=== PATIENT | male | born 1965 | race Caucasian/White ===

== ENCOUNTER 2017-11-13 10:08 | Inpatient (IN) | payer MEDICARE, MEDICAID ==
[2017-11-08 14:45] LABS: BASOPHILS % (AUTO) 0.5 % (0-1); EOSINOPHILS # (AUTO) 0.3 X10'3 (0-0.9); EOSINOPHILS % (AUTO) 3.6 % (0-6); LYMPHOCYTES % (AUTO) 26.2 % (21-51); MEAN CORPUSCULAR HEMOGLOBIN 31.1 PG (27.0-31.0); MEAN CORPUSCULAR HGB CONC 34.1 % (33.0-36.5); MEAN CORPUSCULAR VOLUME 91.4 FL (78-98); MONOCYTES # (AUTO) 0.4 X10'3 (0-0.9); MONOCYTES % (AUTO) 4.9 % (2-12); NEUTROPHILS # (AUTO) 4.8 X10'3 (1.8-7.7); NEUTROPHILS % (AUTO) 64.8 % (42-75); PRE OP HEMATOCRIT 41.6 % (42.0-52.0); PRE OP HEMOGLOBIN 14.2 g/dL (14.0-17.9); PRE OP PLATELET COUNT 258 X10'3 (140-440); RED BLOOD COUNT 4.55 X10'6 (4.70-6.10); RED CELL DISTRIBUTION WIDTH 12.9 % (11.5-14.5)
[2017-11-08 14:53] LABS: ALBUMIN 3.5 G/DL (3.4-5.0); ALBUMIN/GLOBULIN RATIO 0.9 (1.1-1.5); ALKALINE PHOSPHATASE 90 IU/L (46-116); BLOOD UREA NITROGEN 10 MG/DL (7-18); BUN/CREATININE RATIO 9.1 (5.4-32.0); CALCIUM 8.7 MG/DL (8.5-10.1); CHLORIDE 104 MMOL/L (99-107); PRE OP ALT 57 U/L (30-65); PRE OP ANION GAP 12 (8-16); PRE OP AST 39 U/L (10-37); PRE OP BILIRUB, TOTAL 0.5 MG/DL (0.0-1.0); PRE OP POTASSIUM 3.9 MMOL/L (3.4-5.1); PRE OP SODIUM 140 MMOL/L (135-145); TOTAL CARBON DIOXIDE 24.5 MMOL/L (24-32); TOTAL PROTEIN 7.2 G/DL (6.4-8.2); eGFR 71 ML/MIN
[2017-11-08 14:54] LABS: PRE OP GLUCOSE 124 MG/DL (70-104)
[2017-11-13] VITALS (17 sets, daily range): BP systolic 132–220; BP diastolic 70–114
[~2017-11-13] VITALS: Ht 180.3 cm; Wt 110.9 kg
[~2017-11-13 10:08] MED LIST: CLON0.2T2 PO; LANTUS SQ; LISI-604 PO; NOVLG; OMEP20TA23 PO; meperidine/PF 25mg/ml syringe IV PRN; morphine 4 MG/ML inj SYRINge IV PRN; ondansetron/PF 4mg/2ml inj IV PRN; proCHLORperazine 10 MG/2 ml inj IV PRN; ringers solution, lacted 1,000 ML IV SCH
[2017-11-13] MEDS ORDERED: ringers solution, lacted 1,000 ML IV SCH (10:24)
[2017-11-13] MEDS ORDERED: famotidine 20mg tablet PO ONE (10:24)
[2017-11-13] MEDS ORDERED: LIDOcaine 1% (10mg/ml) 2ml vial ONE (10:25)
[2017-11-13] MEDS ORDERED: NORMAL SALINE IV ONE ×2 (10:32→10:35)
[2017-11-13] MEDS ORDERED: VANCOMYCIN INJ 1000 MG in NORMAL SALINE 250ml IV.SOLN IV ONE (10:32)
[2017-11-13] MEDS ORDERED: TRANEXAMIC ACID IV ONE ×2 (10:32→10:35)
[2017-11-13] MEDS ORDERED: Cefazolin 2GM/50ML dext iso,osmotic IVPB IV ONE (10:33)
[2017-11-13] MEDS ORDERED: BUPIVAcaine/PF 7.5mg/ml (0.75%) 10ml vial ONE (11:34)
[2017-11-13] MEDS ORDERED: metoprolol tartrate 1mg/ml inj IV ONE (11:50)
[2017-11-13] MEDS ORDERED: ondansetron/PF 4mg/2ml inj ONE (11:50)
[2017-11-13] MEDS ORDERED: dexamethasone sod phosphate 10mg/ml inj ONE (11:50)
[2017-11-13] MEDS ORDERED: sevoflurane 250ml liquid IH ONE (11:50)
[2017-11-13] MEDS ORDERED: fentaNYL/PF 50MCG/1 ML 2ML syringe ONE (12:01)
[2017-11-13] MEDS ORDERED: MIDAZolam 5mg/5ml vial ONE (12:01)
[2017-11-13] MEDS ORDERED: ROPIVAcaine 0.5% (5mg/ml) 30ml vial ONE (12:19)
[2017-11-13] MEDS ORDERED: LIDOcaine 1%/PF 5ML 10 MG/ML VIAL ONE (12:19)
[2017-11-13] MEDS ORDERED: propofol inj 20 ML IV ONE (12:19)
[2017-11-13] MEDS ORDERED: triamcinolone acetonide 40mg/ml inj ONE (13:07)
[2017-11-13] MEDS ORDERED: ondansetron/PF 4mg/2ml inj IV PRN (13:15)
[2017-11-13] MEDS ORDERED: magnesium hydroxide 30ml (MOM) UD suspension PO PRN (13:15)
[2017-11-13] MEDS ORDERED: diphenhydrAMINE 25mg capsule PO PRN ×2 (13:15)
[2017-11-13] MEDS ORDERED: bisacodyl 10mg suppository rectal RC PRN (13:15)
[2017-11-13] MEDS ORDERED: acetaminophen 325mg tablet PO PRN (13:15)
[2017-11-13] MEDS ORDERED: oxyCODONE IR 5mg (immed. release) tablet PO PRN (13:15)
[2017-11-13] MEDS ORDERED: HYDROmorphone 1 mg/ml syringe IV PRN (13:15)
[2017-11-13] MEDS: acetaminophen 325mg tablet PO SCH ×2 (15:11→20:04)
[2017-11-13] MEDS: ketorolac tromethamine 15mg/ml inj. IV SCH ×2 (15:11→20:05)
[2017-11-13] MEDS: oxyCODONE IR 5mg (immed. release) tablet PO PRN (15:12)
[2017-11-13] MEDS: potassium cl 20mEq in 1/2 NS 1,000 ML IV SCH (15:12)
[2017-11-13] MEDS: ceFAZolin 1GM/D5W- ADD-VANTAGE 50 ML IV SCH (15:12)
[2017-11-13] MEDS ORDERED: MESSAGE TO PHARMACY PO ONE (16:50)
[2017-11-13] MEDS ORDERED: glucagon, human recombinant 1mg kit SUBCUT PRN (16:50)
[2017-11-13] MEDS ORDERED: dextrose 50%-water 50ml dispensing syringe IV PRN ×2 (16:50)
[2017-11-13] MEDS ORDERED: dextrose ORAL solution 15 GM/59 ML bottle PO PRN ×2 (16:50)
[2017-11-13] MEDS ORDERED: hydrALAZINE 20mg/ml inj. IV PRN (17:05)
[2017-11-13] MEDS: HYDROmorphone 1 mg/ml syringe IV PRN ×2 (17:14→21:41)
[2017-11-13] MEDS: insulin Lispro (HumaLOG) vial - multi-dose SQ SCH ×2 (17:25→19:12)
[2017-11-13] MEDS ORDERED: lisinopril 5mg tablet PO ONE (17:40)
[2017-11-13] MEDS ORDERED: cloNIDine 0.1 mg tablet PO ONE (17:40)
[2017-11-13] MEDS: lisinopril 5mg tablet PO SCH (20:04)
[2017-11-13] MEDS: cloNIDine 0.1 mg tablet PO SCH (20:04)
[2017-11-13] MEDS ORDERED: sennosides 8.6mg tablet PO SCH (21:00)
[2017-11-13] MEDS ORDERED: insulin glargine (Lantus) pen - multi-dose SQ SCH (21:00)
[2017-11-14] MEDS: insulin Lispro (HumaLOG) vial - multi-dose SQ SCH ×2 (00:15→09:26)
[2017-11-14] MEDS: oxyCODONE IR 5mg (immed. release) tablet PO PRN (00:21)
[2017-11-14] MEDS: potassium cl 20mEq in 1/2 NS 1,000 ML IV SCH (00:24)
[2017-11-14] MEDS: ceFAZolin 1GM/D5W- ADD-VANTAGE 50 ML IV SCH (00:24)
[2017-11-14 02:00] VITALS: BP 151/82
[2017-11-14] MEDS: ketorolac tromethamine 15mg/ml inj. IV SCH ×2 (02:16→09:10)
[2017-11-14] MEDS: acetaminophen 325mg tablet PO SCH ×2 (02:16→09:13)
[2017-11-14] MEDS: HYDROmorphone 1 mg/ml syringe IV PRN ×2 (05:21→10:21)
[2017-11-14 06:00] VITALS: BP 152/85
[2017-11-14 06:21] LABS: BASOPHILS % (AUTO) 0.3 % (0-1); EOSINOPHILS % (AUTO) 0 % (0-6); HEMOGLOBIN 13.7 g/dl (14.0-17.9); LYMPHOCYTES # (AUTO) 0.9 X10'3 (1.1-4.8); LYMPHOCYTES % (AUTO) 11.4 % (21-51); MEAN CORPUSCULAR HEMOGLOBIN 30.6 PG (27.0-31.0); MEAN CORPUSCULAR HGB CONC 34.2 % (33.0-36.5); MEAN CORPUSCULAR VOLUME 89.4 FL (78-98); MEAN PLATELET VOLUME 7.6 FL (7.4-10.4); MONOCYTES # (AUTO) 0.2 X10'3 (0-0.9); MONOCYTES % (AUTO) 2.2 % (2-12); NEUTROPHILS # (AUTO) 6.6 X10'3 (1.8-7.7); NEUTROPHILS % (AUTO) 86.1 % (42-75); PLATELET COUNT 224 X10'3 (140-440); RED BLOOD COUNT 4.47 X10'6 (4.70-6.10); RED CELL DISTRIBUTION WIDTH 13.6 % (11.5-14.5); WHITE BLOOD COUNT 7.7 X10'3 (4.5-11.0)
[2017-11-14 06:38] LABS: ANION GAP 9 (8-16); CHLORIDE 101 MMOL/L (99-107); POTASSIUM 4.4 MMOL/L (3.5-5.1); SODIUM 135 MMOL/L (135-145); TOTAL CARBON DIOXIDE 25.3 MMOL/L (24-32)
[2017-11-14] MEDS ORDERED: pantoprazole 40mg Tablet.DR PO SCH (07:30)
[2017-11-14] MEDS ORDERED: CLONIDINE HCL 0.2 MG PO SCH (08:00)
[2017-11-14] MEDS ORDERED: lisinopril 10 MG tablet PO SCH (08:00)
[2017-11-14] MEDS ORDERED: insulin glargine (Lantus) pen - multi-dose SQ SCH (08:00)
[2017-11-14] MEDS ORDERED: cloNIDine 0.1 mg tablet PO SCH (08:00)
[2017-11-14] MEDS ORDERED: aspirin 325mg tablet PO SCH (08:30)
[2017-11-14] MEDS ORDERED: HYDR-565 PO (08:48)
[2017-11-14] MEDS: lisinopril 5mg tablet PO SCH (09:15)
[2017-11-14] MEDS: cloNIDine 0.1 mg tablet PO SCH (09:15)
[2017-11-14 10:00] VITALS: BP 143/79
[2017-11-14] MEDS ORDERED: celeCOXIB 100mg capsule PO SCH (20:00)
[2017-11-15] MEDS ORDERED: acetaminophen 325mg tablet PO PRN (13:15)
== END 2017-11-14 13:00 | disposition home or self-care (01) | DRG 511 ==
LOC: PAS IN 10:08 → EDSTATUS 13:15 → ORTHO 4S 14:35
PROVIDERS: ADMIT Orthopaedic Surgery; ATTEND Orthopaedic Surgery
PROC: 3E0T3BZ Introduction of Anesthetic Agent into Peripheral Nerves and Plexi, Percutaneous Approach (ICD-10-PCS; 2017-11-13)
PROC: 0RBK4ZZ Excision of Left Shoulder Joint, Percutaneous Endoscopic Approach (ICD-10-PCS; principal; 2017-11-13 11:55)
DX: M75.122 Complete rotator cuff tear or rupture of left shoulder, not specified as traumatic (principal); D62 Acute posthemorrhagic anemia; M75.42 Impingement syndrome of left shoulder; E11.9 Type 2 diabetes mellitus without complications; I25.10 Atherosclerotic heart disease of native coronary artery without angina pectoris; I10 Essential (primary) hypertension; K21.9 Gastro-esophageal reflux disease without esophagitis; M19.012 Primary osteoarthritis, left shoulder; Z79.4 Long term (current) use of insulin; Z79.899 Other long term (current) drug therapy; Z87.891 Personal history of nicotine dependence
CPT/HCPCS: 36415; 80051; 80053; 82948; 83036; 85025; 87070; 93005; 97110; 97116; A6449; A7000; J0360; J0690; J1100; J1170; J1815; J1885; J2001; J2250; J2405; J2704; J2795; J3010; J3301; J3370; J3490; J7030; J7120

== ENCOUNTER 2018-01-29 07:05 | Inpatient (IN) | payer MEDICARE, MEDICAID ==
[2018-01-23 15:45] LABS: BASOPHILS # (AUTO) 0.1 X10'3 (0-0.2); BASOPHILS % (AUTO) 1.3 % (0-1); EOSINOPHILS # (AUTO) 0.2 X10'3 (0-0.9); EOSINOPHILS % (AUTO) 3.1 % (0-6); LYMPHOCYTES # (AUTO) 2.3 X10'3 (1.1-4.8); LYMPHOCYTES % (AUTO) 31.1 % (21-51); MEAN CORPUSCULAR HEMOGLOBIN 32.2 PG (27.0-31.0); MEAN PLATELET VOLUME 7.6 FL (7.4-10.4); MONOCYTES # (AUTO) 0.5 X10'3 (0-0.9); MONOCYTES % (AUTO) 6.2 % (2-12); NEUTROPHILS # (AUTO) 4.2 X10'3 (1.8-7.7); NEUTROPHILS % (AUTO) 58.3 % (42-75); PRE OP HEMOGLOBIN 13.6 g/dL (14.0-17.9); PRE OP PLATELET COUNT 232 X10'3 (140-440); RED BLOOD COUNT 4.24 X10'6 (4.70-6.10); RED CELL DISTRIBUTION WIDTH 13.4 % (11.5-14.5)
[2018-01-23 15:58] LABS: PRE OP PROTIME 10.1 SECONDS (9.0-12.0)
[2018-01-23 15:59] LABS: ALBUMIN 3.4 G/DL (3.4-5.0); ALBUMIN/GLOBULIN RATIO 0.9 (1.1-1.5); ALKALINE PHOSPHATASE 96 IU/L (46-116); BLOOD UREA NITROGEN 11 MG/DL (7-18); BUN/CREATININE RATIO 10.5 (5.4-32.0); CALCIUM 8.3 MG/DL (8.5-10.1); CHLORIDE 105 MMOL/L (99-107); CREATININE 1.05 MG/DL (0.60-1.10); PRE OP ANION GAP 11 (8-16); PRE OP BILIRUB, TOTAL 0.3 MG/DL (0.0-1.0); PRE OP SODIUM 141 MMOL/L (135-145); eGFR 75 ML/MIN
[2018-01-23 16:01] LABS: HEMOGLOBIN A1C 5.7 % (4.5-6.2)
[2018-01-23 16:10] LABS: PRE OP ALT 53 U/L (30-65); PRE OP AST 46 U/L (10-37)
[2018-01-23 16:11] LABS: PRE OP GLUCOSE 124 MG/DL (70-104)
[~2018-01-29] VITALS: Ht 182.9 cm; Wt 114.7 kg
[2018-01-29] VITALS (20 sets, daily range): BP systolic 119–184; BP diastolic 57–110
[~2018-01-29 07:05] MED LIST changes: +GABA-532 PO; +HYDR-3973 PO; +LABE200T5 PO; +LISI-600 PO; -LISI-604 PO; +cefazolin/dext.iso 2gm/100 ML IV ONE; +famotidine 20mg tablet PO ONE; -meperidine/PF 25mg/ml syringe IV PRN; -morphine 4 MG/ML inj SYRINge IV PRN; -ondansetron/PF 4mg/2ml inj IV PRN; -proCHLORperazine 10 MG/2 ml inj IV PRN; +vancomycin inj 1,500 MG in normal saline 300ml IV soln IV ONE
[2018-01-29] MEDS ORDERED: ketorolac trometh. 30mg/ml inj. ONE (08:23)
[2018-01-29] MEDS ORDERED: ROPIVAcaine 0.5% (5mg/ml) 30ml vial ONE (08:23)
[2018-01-29] MEDS ORDERED: vancomycin 1,000mg inj ONE (08:23)
[2018-01-29] MEDS ORDERED: diazepam 5mg tablet PO ONE (08:50)
[2018-01-29] MEDS ORDERED: labetalol 100mg tablet PO ONE (09:05)
[2018-01-29] MEDS ORDERED: sevoflurane 250ml liquid IH ONE (09:41)
[2018-01-29] MEDS ORDERED: albuterol 60 PUFF/8GM Inhaler IH ONE (09:41)
[2018-01-29] MEDS ORDERED: midazolam 2 mg/2 ml injection ONE (09:49)
[2018-01-29] MEDS ORDERED: fentaNYL /PF 50mcg/ml 5ml ampule ONE (09:50)
[2018-01-29] MEDS ORDERED: propofol inj 20 ML IV ONE (10:00)
[2018-01-29] MEDS ORDERED: LIDOcaine 2% (20mg/ml) 5ml vial ONE (10:00)
[2018-01-29] MEDS ORDERED: fentaNYL/PF 50MCG/1 ML 2ML syringe ONE (10:43)
[2018-01-29] MEDS ORDERED: ondansetron/PF 4mg/2ml inj ONE (11:25)
[2018-01-29] MEDS ORDERED: neostigmine methylsulfate 1 MG/ML 10ml vial ONE (11:25)
[2018-01-29] MEDS ORDERED: glycopyrrolate 0.2mg/ml inj ONE (11:25)
[2018-01-29] MEDS ORDERED: metoprolol tartrate 1mg/ml inj IV ONE (11:25)
[2018-01-29] MEDS ORDERED: acetaminophen 325mg tablet PO PRN (11:40)
[2018-01-29] MEDS ORDERED: HYDROmorphone 1 mg/ml syringe IV PRN (11:40)
[2018-01-29] MEDS ORDERED: cloNIDine 0.1 mg tablet PO PRN (11:40)
[2018-01-29] MEDS ORDERED: ondansetron/PF 4mg/2ml inj IV PRN ×2 (11:40→11:55)
[2018-01-29] MEDS ORDERED: magnesium hydroxide 30ml (MOM) UD suspension PO PRN (11:40)
[2018-01-29] MEDS ORDERED: oxyCODONE IR 5mg (immed. release) tablet PO PRN (11:40)
[2018-01-29] MEDS ORDERED: bisacodyl 10mg suppository rectal RC PRN (11:40)
[2018-01-29] MEDS ORDERED: diphenhydrAMINE 25mg capsule PO PRN ×2 (11:40)
[2018-01-29] MEDS ORDERED: ringers solution, lacted 1,000 ML IV SCH (11:51)
[2018-01-29] MEDS ORDERED: proCHLORperazine 10 MG/2 ml inj IV PRN (11:55)
[2018-01-29] MEDS ORDERED: meperidine/PF 25mg/ml syringe IV PRN ×3 (11:55)
[2018-01-29] MEDS ORDERED: morphine 4 MG/ML inj SYRINge IV PRN ×2 (11:55)
[2018-01-29] MEDS: HYDROmorphone 1 mg/ml syringe IV PRN ×4 (12:08→23:05)
[2018-01-29] MEDS: oxyCODONE IR 5mg (immed. release) tablet PO PRN ×3 (12:50→21:51)
[2018-01-29] MEDS ORDERED: gabapentin 300mg capsule PO SCH (13:00)
[2018-01-29] MEDS: ketorolac tromethamine 15mg/ml inj. IV SCH ×2 (14:08→20:57)
[2018-01-29] MEDS: gabapentin 300mg capsule PO SCH ×2 (14:08→20:56)
[2018-01-29] MEDS: acetaminophen 325mg tablet PO SCH ×2 (14:09→20:54)
[2018-01-29] MEDS: potassium cl 20mEq in 1/2 NS 1,000 ML IV SCH ×2 (14:40→16:04)
[2018-01-29] MEDS: ceFAZolin 1GM/D5W- ADD-VANTAGE 50 ML IV SCH (16:04)
[2018-01-29] MEDS ORDERED: vancomycin/NS 1 GM ADD-VANTAGE 250 ML IV SCH (20:00)
[2018-01-29] MEDS: lisinopril 20mg tablet PO SCH (20:55)
[2018-01-29] MEDS: sennosides 8.6mg tablet PO SCH (20:57)
[2018-01-30] VITALS (7 sets, daily range): BP systolic 106–144; BP diastolic 48–66
[2018-01-30] MEDS: ceFAZolin 1GM/D5W- ADD-VANTAGE 50 ML IV SCH (00:10)
[2018-01-30] MEDS: acetaminophen 325mg tablet PO SCH ×4 (02:14→20:12)
[2018-01-30] MEDS: ketorolac tromethamine 15mg/ml inj. IV SCH ×2 (02:15→08:13)
[2018-01-30] MEDS: oxyCODONE IR 5mg (immed. release) tablet PO PRN ×5 (02:15→20:15)
[2018-01-30] MEDS: potassium cl 20mEq in 1/2 NS 1,000 ML IV SCH ×4 (03:38→22:52)
[2018-01-30] MEDS: HYDROmorphone 1 mg/ml syringe IV PRN ×5 (04:00→22:37)
[2018-01-30 05:00] LABS: BASOPHILS % (AUTO) 0.7 % (0-1); EOSINOPHILS # (AUTO) 0.3 X10'3 (0-0.9); EOSINOPHILS % (AUTO) 4.8 % (0-6); HEMATOCRIT 31.8 % (42.0-52.0); HEMOGLOBIN 10.9 g/dl (14.0-17.9); LYMPHOCYTES # (AUTO) 1.7 X10'3 (1.1-4.8); LYMPHOCYTES % (AUTO) 29.8 % (21-51); MEAN CORPUSCULAR HEMOGLOBIN 31.1 PG (27.0-31.0); MEAN CORPUSCULAR HGB CONC 34.2 % (33.0-36.5); MEAN CORPUSCULAR VOLUME 91.1 FL (78-98); MEAN PLATELET VOLUME 7.5 FL (7.4-10.4); MONOCYTES # (AUTO) 0.6 X10'3 (0-0.9); NEUTROPHILS # (AUTO) 3.1 X10'3 (1.8-7.7); NEUTROPHILS % (AUTO) 54.7 % (42-75); PLATELET COUNT 155 X10'3 (140-440); RED BLOOD COUNT 3.49 X10'6 (4.70-6.10); RED CELL DISTRIBUTION WIDTH 13.9 % (11.5-14.5); WHITE BLOOD COUNT 5.7 X10'3 (4.5-11.0)
[2018-01-30 05:20] LABS: ANION GAP 8 (8-16); CHLORIDE 100 MMOL/L (99-107); POTASSIUM 4.1 MMOL/L (3.5-5.1); SODIUM 134 MMOL/L (135-145); TOTAL CARBON DIOXIDE 26.1 MMOL/L (24-32)
[2018-01-30] MEDS: insulin glargine (Lantus) pen - multi-dose SQ SCH (08:00)
[2018-01-30] MEDS: gabapentin 300mg capsule PO SCH ×3 (08:22→20:11)
[2018-01-30] MEDS: pantoprazole 40mg Tablet.DR PO SCH (08:23)
[2018-01-30] MEDS: labetalol 100mg tablet PO SCH (08:26)
[2018-01-30] MEDS: aspirin 325mg tablet PO SCH (08:28)
[2018-01-30] MEDS: lisinopril 20mg tablet PO SCH ×2 (08:28→20:12)
[2018-01-30] MEDS: celeCOXIB 100mg capsule PO SCH (20:11)
[2018-01-30] MEDS: sennosides 8.6mg tablet PO SCH (20:13)
[2018-01-31] MEDS: oxyCODONE IR 5mg (immed. release) tablet PO PRN ×5 (02:02→21:20)
[2018-01-31] MEDS: acetaminophen 325mg tablet PO SCH ×2 (02:02→07:29)
[2018-01-31] MEDS: HYDROmorphone 1 mg/ml syringe IV PRN ×4 (04:12→22:51)
[2018-01-31 06:00] VITALS: BP 143/81
[2018-01-31] MEDS ORDERED: insulin Lispro (HumaLOG) vial - multi-dose SQ SCH (06:50)
[2018-01-31] MEDS: lisinopril 20mg tablet PO SCH ×2 (07:26→20:21)
[2018-01-31] MEDS: celeCOXIB 100mg capsule PO SCH ×2 (07:27→20:16)
[2018-01-31] MEDS: gabapentin 300mg capsule PO SCH ×3 (07:28→20:16)
[2018-01-31] MEDS: labetalol 100mg tablet PO SCH (07:29)
[2018-01-31] MEDS: pantoprazole 40mg Tablet.DR PO SCH (07:29)
[2018-01-31] MEDS: insulin glargine (Lantus) pen - multi-dose SQ SCH (07:34)
[2018-01-31] MEDS: aspirin 325mg tablet PO SCH (09:04)
[2018-01-31 10:00] VITALS: BP 114/61
[2018-01-31] MEDS ORDERED: acetaminophen 325mg tablet PO PRN (11:40)
[2018-01-31 11:51] LABS: BASOPHILS % (AUTO) 0.5 % (0-1); EOSINOPHILS # (AUTO) 0.3 X10'3 (0-0.9); EOSINOPHILS % (AUTO) 5.3 % (0-6); HEMOGLOBIN 10.5 g/dl (14.0-17.9); LYMPHOCYTES # (AUTO) 1.6 X10'3 (1.1-4.8); LYMPHOCYTES % (AUTO) 27.1 % (21-51); MEAN CORPUSCULAR HEMOGLOBIN 30.7 PG (27.0-31.0); MEAN CORPUSCULAR HGB CONC 33.8 % (33.0-36.5); MEAN CORPUSCULAR VOLUME 90.9 FL (78-98); MEAN PLATELET VOLUME 7.1 FL (7.4-10.4); MONOCYTES # (AUTO) 0.8 X10'3 (0-0.9); MONOCYTES % (AUTO) 12.6 % (2-12); NEUTROPHILS # (AUTO) 3.3 X10'3 (1.8-7.7); NEUTROPHILS % (AUTO) 54.5 % (42-75); PLATELET COUNT 162 X10'3 (140-440); RED BLOOD COUNT 3.41 X10'6 (4.70-6.10)
[2018-01-31 17:00] VITALS: BP 156/66
[2018-01-31] MEDS: sennosides 8.6mg tablet PO SCH (20:16)
[2018-01-31 20:22] VITALS: BP 176/81
[2018-01-31 21:55] VITALS: BP 158/62
[2018-02-01] MEDS: oxyCODONE IR 5mg (immed. release) tablet PO PRN ×3 (01:00→09:44)
[2018-02-01] MEDS: HYDROmorphone 1 mg/ml syringe IV PRN ×3 (02:53→11:53)
[2018-02-01 06:00] VITALS: BP 139/48
[2018-02-01 07:35] LABS: BASOPHILS % (AUTO) 0.4 % (0-1); EOSINOPHILS # (AUTO) 0.3 X10'3 (0-0.9); EOSINOPHILS % (AUTO) 6.4 % (0-6); HEMATOCRIT 32.2 % (42.0-52.0); HEMOGLOBIN 10.8 g/dl (14.0-17.9); LYMPHOCYTES # (AUTO) 1.6 X10'3 (1.1-4.8); LYMPHOCYTES % (AUTO) 31.3 % (21-51); MEAN CORPUSCULAR HEMOGLOBIN 30.7 PG (27.0-31.0); MEAN CORPUSCULAR HGB CONC 33.7 % (33.0-36.5); MEAN CORPUSCULAR VOLUME 91.2 FL (78-98); MEAN PLATELET VOLUME 7.4 FL (7.4-10.4); MONOCYTES # (AUTO) 0.5 X10'3 (0-0.9); MONOCYTES % (AUTO) 10.4 % (2-12); NEUTROPHILS # (AUTO) 2.6 X10'3 (1.8-7.7); NEUTROPHILS % (AUTO) 51.5 % (42-75); PLATELET COUNT 178 X10'3 (140-440); RED BLOOD COUNT 3.53 X10'6 (4.70-6.10); RED CELL DISTRIBUTION WIDTH 13.8 % (11.5-14.5)
[2018-02-01] MEDS: pantoprazole 40mg Tablet.DR PO SCH (07:46)
[2018-02-01] MEDS: celeCOXIB 100mg capsule PO SCH (07:46)
[2018-02-01] MEDS: labetalol 100mg tablet PO SCH (07:46)
[2018-02-01] MEDS: gabapentin 300mg capsule PO SCH (07:46)
[2018-02-01] MEDS: aspirin 325mg tablet PO SCH (07:47)
[2018-02-01] MEDS: lisinopril 20mg tablet PO SCH (07:47)
[2018-02-01] MEDS: insulin glargine (Lantus) pen - multi-dose SQ SCH (07:57)
[2018-02-01] MEDS ORDERED: polyethylene glycol 3350 17gm powd pack PO ONE (08:10)
[2018-02-01 10:00] VITALS: BP 119/57
== END 2018-02-01 12:00 | DRG 483 ==
LOC: PAS IN 07:05 → EDSTATUS 10:15 → ORTHO 4S 13:10
PROVIDERS: ADMIT Orthopaedic Surgery; ATTEND Orthopaedic Surgery
PROC: 3E0T3BZ Introduction of Anesthetic Agent into Peripheral Nerves and Plexi, Percutaneous Approach (ICD-10-PCS; 2018-01-29)
PROC: 0RRK00Z Replacement of Left Shoulder Joint with Reverse Ball and Socket Synthetic Substitute, Open Approach (ICD-10-PCS; principal; 2018-01-29 09:41)
DX: M19.012 Primary osteoarthritis, left shoulder (principal); D62 Acute posthemorrhagic anemia; M75.122 Complete rotator cuff tear or rupture of left shoulder, not specified as traumatic; E11.9 Type 2 diabetes mellitus without complications; I10 Essential (primary) hypertension; I25.10 Atherosclerotic heart disease of native coronary artery without angina pectoris; F41.8 Other specified anxiety disorders; K21.9 Gastro-esophageal reflux disease without esophagitis; Z72.89 Other problems related to lifestyle; Z79.899 Other long term (current) drug therapy; Z87.891 Personal history of nicotine dependence
CPT/HCPCS: 36415; 80051; 80053; 82948; 83036; 85025; 85610; 85730; 87070; 87075; 87102; 97116; 97161; 97530; A7000; G0378; J0690; J1170; J1815; J1885; J2001; J2250; J2270; J2405; J2704; J2710; J2795; J3010; J3370; J3490; J7030; J7040; J7120; Q0163

== ENCOUNTER 2018-02-28 23:05 | Emergency (ER) | payer MEDICARE, MEDICAID ==
[~2018-02-28] VITALS: Ht 180.3 cm; Wt 112.0 kg
[~2018-02-28 23:05] MED LIST changes: -cefazolin/dext.iso 2gm/100 ML IV ONE; -famotidine 20mg tablet PO ONE; -ringers solution, lacted 1,000 ML IV SCH; -vancomycin inj 1,500 MG in normal saline 300ml IV soln IV ONE
[2018-02-28 23:09] VITALS: BP 132/57
[2018-02-28] MEDS ORDERED: ondansetron 4mg rapidly disintigrating tab PO ONE (23:50)
[2018-02-28] MEDS ORDERED: HYDROmorphone 1 mg/ml syringe IM ONE (23:50)
== END 2018-03-01 01:37 | disposition home or self-care (01) ==
LOC: ER 23:06
DX: M79.602 Pain in left arm (principal); I25.10 Atherosclerotic heart disease of native coronary artery without angina pectoris; E78.00 Pure hypercholesterolemia, unspecified; K21.9 Gastro-esophageal reflux disease without esophagitis; E11.9 Type 2 diabetes mellitus without complications; F41.9 Anxiety disorder, unspecified; F32.9 Major depressive disorder, single episode, unspecified
CPT/HCPCS: 73030; 73080; 96372; 99283; J1170

== ENCOUNTER 2018-05-17 08:59 | Inpatient (IN) | payer MEDICARE, MEDICAID | END 2018-05-20 15:45 | LOC: PAS IN 08:59 → ORTHO 4S 16:35 | PROC: 0RRK0J7 Replacement of Left Shoulder Joint with Synthetic Substitute, Glenoid Surface, Open Approach (ICD-10-PCS; principal; 2018-05-17 13:10) | PROC: 0RPK0JZ Removal of Synthetic Substitute from Left Shoulder Joint, Open Approach (ICD-10-PCS; 2018-05-17 13:10) | DX: S43.015A Anterior dislocation of left humerus, initial encounter (principal); T84.498A Other mechanical complication of other internal orthopedic devices, implants and grafts, initial encounter; M25.512 Pain in left shoulder; Z96.612 Presence of left artificial shoulder joint ==

== ENCOUNTER 2018-06-06 00:31 | Inpatient (IN) | payer MEDICARE, MEDICAID ==
[2018-06-06] VITALS (20 sets, daily range): BP systolic 97–169; BP diastolic 48–97
[~2018-06-06] VITALS: Ht 182.9 cm; Wt 115.0 kg
[2018-06-06] MEDS ORDERED: acetaminophen 325mg tablet PO ONE (01:00)
[2018-06-06] MEDS ORDERED: piperacillin/tazo 3.375gm/50ml 50 ML IV ONE (01:15)
[2018-06-06] MEDS ORDERED: vancomycin/NS 1 GM ADD-VANTAGE 250 ML IV ONE (01:15)
[2018-06-06] MEDS ORDERED: normal saline 1000ML IV soln IV ONE (01:15)
[2018-06-06] MEDS ORDERED: fentaNYL/PF 50MCG/1 ML 2ML syringe IV ONE ×2 (01:35→02:30)
[2018-06-06] MEDS ORDERED: ondansetron/PF 4mg/2ml inj IV ONE (01:35)
[2018-06-06] MEDS ORDERED: iohexol 300mg/ml 100ml inj. ONE (01:39)
[2018-06-06 02:00] LABS: BASOPHILS # (AUTO) 0.1 X10'3 (0-0.2); BASOPHILS % (AUTO) 0.8 % (0-1); EOSINOPHILS # (AUTO) 0.1 X10'3 (0-0.9); EOSINOPHILS % (AUTO) 1.2 % (0-6); HEMATOCRIT 37.5 % (42.0-52.0); HEMOGLOBIN 12.3 g/dl (14.0-17.9); LYMPHOCYTES # (AUTO) 1.8 X10'3 (1.1-4.8); LYMPHOCYTES % (AUTO) 16.3 % (21-51); MEAN CORPUSCULAR HEMOGLOBIN 28.6 PG (27.0-31.0); MEAN CORPUSCULAR HGB CONC 32.7 g/dL (33.0-36.5); MEAN CORPUSCULAR VOLUME 87.4 FL (78-98); MEAN PLATELET VOLUME 7.3 FL (7.4-10.4); MONOCYTES # (AUTO) 1.2 X10'3 (0-0.9); MONOCYTES % (AUTO) 10.7 % (2-12); NEUTROPHILS # (AUTO) 7.8 X10'3 (1.8-7.7); PLATELET COUNT 314 X10'3 (140-440); RED BLOOD COUNT 4.29 X10'6 (4.70-6.10); RED CELL DISTRIBUTION WIDTH 15.5 % (11.5-14.5)
[2018-06-06 02:07] LABS: PARTIAL THROMBOPLASTIN TIME 28 SECONDS (22-32); PROTHROMBIN TIME 10.1 SECONDS (9.0-12.0)
[2018-06-06 02:11] LABS: ALANINE AMINOTRANSFERASE 42 U/L (12-78); ALBUMIN 3.5 G/DL (3.4-5.0); ALBUMIN/GLOBULIN RATIO 0.9 (1.1-1.5); ALKALINE PHOSPHATASE 88 IU/L (46-116); ANION GAP 10 (8-16); ASPARTATE AMINO TRANSFERASE 30 U/L (10-37); BILIRUBIN,TOTAL 0.3 MG/DL (0.1-1.0); BLOOD UREA NITROGEN 15 MG/DL (7-18); BUN/CREATININE RATIO 13.4 (5.4-32.0); CHLORIDE 103 MMOL/L (99-107); CREATININE 1.12 MG/DL (0.60-1.10); GLUCOSE 133 MG/DL (70-104); MAGNESIUM 1.9 MG/DL (1.5-2.4); POTASSIUM 3.7 MMOL/L (3.5-5.1); SODIUM 139 MMOL/L (135-145); TOTAL CARBON DIOXIDE 25.6 MMOL/L (24-32); TOTAL PROTEIN 7.4 G/DL (6.4-8.2); eGFR 69 ML/MIN
[2018-06-06] MEDS ORDERED: ondansetron/PF 4mg/2ml inj IV PRN ×3 (03:50→18:25)
[2018-06-06] MEDS ORDERED: HYDROmorphone inj. 0.5 MG/0.5 ML DISP.SYRIN IV PRN ×2 (03:50→18:25)
[2018-06-06] MEDS ORDERED: dextrose ORAL solution 15 GM/59 ML bottle PO PRN ×2 (03:55)
[2018-06-06] MEDS ORDERED: insulin Lispro (HumaLOG) vial - multi-dose SQ SCH (03:55)
[2018-06-06] MEDS ORDERED: MESSAGE TO PHARMACY PO ONE (03:55)
[2018-06-06] MEDS ORDERED: glucagon, human recombinant 1mg kit SUBCUT PRN (03:55)
[2018-06-06] MEDS ORDERED: dextrose 50%-water 50ml dispensing syringe IV PRN ×2 (03:55)
[2018-06-06] MEDS ORDERED: enalaprilat dihydrate 2.5mg/2ml vial IV ONE (03:55)
[2018-06-06] MEDS ORDERED: cloNIDine 0.1 MG/24 HOUR patch (7 day patch) TD ONE (03:55)
[2018-06-06] MEDS ORDERED: enalaprilat dihydrate 2.5mg/2ml vial IV PRN (03:55)
[2018-06-06] MEDS ORDERED: INSU100I31 SQ (04:35)
[2018-06-06] MEDS ORDERED: CELE-193 PO (04:35)
[2018-06-06] MEDS ORDERED: INSU100C10 SQ (04:36)
[2018-06-06] MEDS ORDERED: METO50TA7 PO (04:38)
[2018-06-06] MEDS ORDERED: HYDR-3972 PO (04:40)
[2018-06-06] MEDS ORDERED: OXYC5CAP19 PO (04:44)
[2018-06-06] MEDS ORDERED: OXYC-580 PO (04:44)
[2018-06-06] MEDS: HYDROmorphone 1 mg/ml syringe IV PRN ×4 (05:00→14:35)
[2018-06-06] MEDS: normal saline 1000ml 1,000 ML IV SCH ×2 (05:01→10:15)
[2018-06-06] MEDS ORDERED: piperacillin/tazo 3.375gm/50ml 50 ML IV SCH (08:00)
[2018-06-06] MEDS ORDERED: pantoprazole 40 MG vial IV SCH (08:00)
--- NOTE | 2018-06-06 09:30 | NUR ---
Patient in room ORTHO 4011. I have received report from RU Garcia in ED, and had the opportunity to ask questions and assume patient care. Addendum: 06/06/18 at 1107 by Lea Byrd RN pt arrived on the unit at 09:55, tucked in, IV fluids hung
--- NOTE | 2018-06-06 12:08 | NUR ---
PAGER ID: [phone] MESSAGE: Lea on ortho, # [phone] Mr. Acosta in 401, blood glucose is 88, pt requested juice to bring it up, please advise, thank you
--- NOTE | 2018-06-06 12:22 | NUR ---
Patient in room ORTHO 4011. I have received report from ANANT Okeefe and had the opportunity to ask questions and assume patient care.
[2018-06-06] MEDS: dextrose 5%-water 1,000 ML IV SCH ×2 (12:45→22:15)
[2018-06-06] MEDS ORDERED: meperidine/PF 25mg/ml syringe IV PRN ×3 (14:05)
[2018-06-06] MEDS ORDERED: morphine 4 MG/ML inj SYRINge IV PRN ×2 (14:05)
[2018-06-06] MEDS ORDERED: ringers solution, lacted 1,000 ML IV SCH (14:05)
[2018-06-06] MEDS ORDERED: proCHLORperazine 10 MG/2 ml inj IV PRN (14:05)
[2018-06-06] MEDS ORDERED: ketorolac trometh. 30mg/ml inj. ONE (14:28)
[2018-06-06] MEDS ORDERED: ROPIVAcaine 0.5% (5mg/ml) 30ml vial ONE (14:29)
--- NOTE | 2018-06-06 14:45 | NUR ---
Extended PIV inserted to the right upper arm stump brachial vein x 2 attempts using ultrasound. Taina hogan. Addendum: 06/06/18 at 1448 by Trinity Augustine RN Amended: Links added.
--- NOTE | 2018-06-06 14:55 | NUR ---
Pt picked up and taken to OR
--- NOTE | 2018-06-06 14:56 | NUR ---
Problems reprioritized. Patient report given, questions answered & plan of care reviewed with Puneet VENCES.
[2018-06-06] MEDS ORDERED: rocuronium 10mg/ml inj IV ONE (15:32)
[2018-06-06] MEDS ORDERED: sevoflurane 250ml liquid IH ONE (15:32)
[2018-06-06] MEDS ORDERED: LIDOcaine 2% (20mg/ml) 5ml vial ONE (15:34)
[2018-06-06] MEDS ORDERED: propofol inj 20 ML IV ONE (15:34)
[2018-06-06] MEDS ORDERED: midazolam 2 mg/2 ml injection ONE (15:34)
[2018-06-06] MEDS ORDERED: fentaNYL /PF 50mcg/ml 5ml ampule ONE (15:34)
[2018-06-06] MEDS ORDERED: vancomycin 1,000mg inj ONE (17:06)
--- NOTE | 2018-06-06 18:19 | NUR ---
Problems reprioritized. Patient report given, questions answered & plan of care reviewed with Mary VENCES.
--- NOTE | 2018-06-06 18:21 | NUR ---
Received from OR via BED, accompanied by Anesthesiologist DR WHITTAKER and report given by Anesthesiologist. PT VERY DROWSY, LEFT SHOULDER W/DRSG/SHOULDER WRAP, ICE PACK, GLORIA DRAIN, CDI. FINGERS PWD. Addendum: 06/06/18 at 1900 by Angelica Walker RN Amended: Links added. Addendum: 06/06/18 at 1905 by Angelica Walker RN LATE NOTE, ORAL AIRWAY PLACED AND PT HELD IN JAW THRUST FOR APPROX 15 MINUTES UNTIL PT MORE AWAKE AND ABLE TO BREATH W/O ASSISTANCE.
[2018-06-06] MEDS ORDERED: diphenhydrAMINE 25mg capsule PO PRN ×2 (18:25)
[2018-06-06] MEDS ORDERED: bisacodyl 10mg suppository rectal RC PRN (18:25)
[2018-06-06] MEDS ORDERED: cloNIDine 0.1 mg tablet PO PRN (18:25)
[2018-06-06] MEDS ORDERED: oxyCODONE IR 5mg (immed. release) tablet PO PRN (18:25)
[2018-06-06] MEDS ORDERED: magnesium hydroxide 30ml (MOM) UD suspension PO PRN (18:25)
--- NOTE | 2018-06-06 18:48 | NUR ---
Patient in room ORTHO 4011. I have received report from Lea VENCES and had the opportunity to ask questions and assume patient care. Patient in surgery still.
[2018-06-06] MEDS ORDERED: tobramycin sulfate 1.2gm vial TP ONE (18:55)
[2018-06-06] MEDS ORDERED: labetalol 20mg/4ml (5mg/ml) syringe IV ONE ×2 (19:29→19:30)
--- NOTE | 2018-06-06 20:01 | NUR ---
Report called to receiving nurse. Transferred PT IN STABLE CONDITION, BP IMPROVED AFTER IV LABETALOL GIVEN, PT WAS ABLE TO VOID W/ASSISTANCE 400 ML, TRANSFERRED via BED, NO Belongings, UPPER DENTURE SENT W/PT TO ROOM 4011B, RECEIVING RN AT BEDSIDE TO RECEIVE PT, PTS FRIEND AT BEDSIDE WELL, BLL, CALL LIGHT GIVEN TO PT, SIDE RAILS UP. Special Issues communicated to receiving nurse. YES. Addendum: 06/06/18 at 2021 by Angelica Walker RN Amended: Links added.
[2018-06-06] MEDS: potassium cl 20mEq in 1/2 NS 1,000 ML IV SCH (20:19)
[2018-06-06] MEDS: insulin glargine (Lantus) pen - multi-dose SQ SCH (21:00)
[2018-06-06] MEDS: lactobacillus rhamnosus 10,000 MMU CELLS/CAPSULE PO SCH (21:01)
[2018-06-06] MEDS: celeCOXIB 100mg capsule PO SCH (21:01)
[2018-06-06] MEDS: gabapentin 300mg capsule PO SCH (21:02)
[2018-06-06] MEDS: sennosides 8.6mg tablet PO SCH (21:02)
[2018-06-06] MEDS: lisinopril 20mg tablet PO SCH (21:02)
[2018-06-06] MEDS: labetalol 100mg tablet PO SCH (21:03)
[2018-06-06] MEDS: oxyCODONE IR 5mg (immed. release) tablet PO PRN (21:04)
[2018-06-07] MEDS: oxyCODONE IR 5mg (immed. release) tablet PO PRN ×3 (01:10→11:33)
[2018-06-07 02:00] VITALS: BP 133/63
[2018-06-07 06:00] VITALS: BP 146/73
--- NOTE | 2018-06-07 06:15 | NUR ---
Patient in room ORTHO 4011. I have received report from UR Hernandez and had the opportunity to ask questions and assume patient care.
--- NOTE | 2018-06-07 06:35 | NUR ---
Problems reprioritized. Patient report given, questions answered & plan of care reviewed with Lea VENCES.
[2018-06-07 07:21] LABS: BASOPHILS % (AUTO) 0.3 % (0-1); EOSINOPHILS # (AUTO) 0.1 X10'3 (0-0.9); EOSINOPHILS % (AUTO) 1.3 % (0-6); HEMOGLOBIN 10.5 g/dl (14.0-17.9); LYMPHOCYTES # (AUTO) 1.3 X10'3 (1.1-4.8); MEAN CORPUSCULAR HEMOGLOBIN 28.8 PG (27.0-31.0); MEAN CORPUSCULAR HGB CONC 32.9 g/dL (33.0-36.5); MEAN CORPUSCULAR VOLUME 87.6 FL (78-98); MEAN PLATELET VOLUME 7.3 FL (7.4-10.4); MONOCYTES % (AUTO) 10.9 % (2-12); NEUTROPHILS # (AUTO) 6.5 X10'3 (1.8-7.7); NEUTROPHILS % (AUTO) 72.5 % (42-75); PLATELET COUNT 245 X10'3 (140-440); RED BLOOD COUNT 3.66 X10'6 (4.70-6.10); RED CELL DISTRIBUTION WIDTH 15.6 % (11.5-14.5)
[2018-06-07 07:23] LABS: ALANINE AMINOTRANSFERASE 28 U/L (12-78); ALBUMIN 2.7 G/DL (3.4-5.0); ALBUMIN/GLOBULIN RATIO 0.8 (1.1-1.5); ALKALINE PHOSPHATASE 58 IU/L (46-116); ANION GAP 7 (8-16); ASPARTATE AMINO TRANSFERASE 24 U/L (10-37); BILIRUBIN,TOTAL 0.7 MG/DL (0.1-1.0); BLOOD UREA NITROGEN 11 MG/DL (7-18); BUN/CREATININE RATIO 9.4 (5.4-32.0); CALCIUM 8.3 MG/DL (8.5-10.1); CHLORIDE 103 MMOL/L (99-107); CREATININE 1.17 MG/DL (0.60-1.10); GLUCOSE 109 MG/DL (70-104); POTASSIUM 3.9 MMOL/L (3.5-5.1); SODIUM 137 MMOL/L (135-145); TOTAL CARBON DIOXIDE 26.7 MMOL/L (24-32); TOTAL PROTEIN 6.3 G/DL (6.4-8.2); eGFR 66 ML/MIN
[2018-06-07] MEDS: HYDROmorphone 1 mg/ml syringe IV PRN ×3 (08:03→18:00)
[2018-06-07] MEDS: dextrose 5%-water 1,000 ML IV SCH ×2 (08:15→18:15)
[2018-06-07] MEDS: pantoprazole 40mg Tablet.DR PO SCH (08:22)
[2018-06-07] MEDS: potassium cl 20mEq in 1/2 NS 1,000 ML IV SCH ×3 (08:22→19:18)
[2018-06-07] MEDS: cefepime 1GM/NS ADD-VANTAGE 100 ML IV SCH ×2 (08:23)
[2018-06-07] MEDS: metoprolol succinate 25mg (24-HOUR) SR. Tablet PO SCH (08:25)
[2018-06-07] MEDS: labetalol 100mg tablet PO SCH ×3 (08:25→21:03)
[2018-06-07] MEDS: gabapentin 300mg capsule PO SCH ×3 (08:25→21:02)
[2018-06-07] MEDS: celeCOXIB 100mg capsule PO SCH ×2 (08:25→21:01)
[2018-06-07] MEDS: lactobacillus rhamnosus 10,000 MMU CELLS/CAPSULE PO SCH ×2 (08:25→21:02)
[2018-06-07] MEDS: lisinopril 20mg tablet PO SCH ×2 (08:26→21:03)
[2018-06-07] MEDS: enoxaparin 40mg/0.4ml syringe SUBCUT SCH (08:27)
[2018-06-07] MEDS: insulin glargine (Lantus) pen - multi-dose SQ SCH ×2 (08:32→21:00)
--- NOTE | 2018-06-07 09:00 | NUR ---
Pt's blood glucose was 164, pt was upset, not on our protocol, left his room to come find RN in another pt's room, proceeded back to his room and administered pt's own insulin. MD happened to be at nurse's station, advised MD of circumstances. No new orders given. spoke with pt.
[2018-06-07] MEDS ORDERED: VANCOMYCIN LEVEL IV ONE (09:30)
--- NOTE | 2018-06-07 09:55 | NUR ---
PAGER ID: [phone] MESSAGE: Lea on ortho, #[phone] Mr. Acosta in 4011B, blood sugar 164, pt's requesting insulin, hasn't met protocol, please advise, thank you
[2018-06-07 10:00] VITALS: BP 108/48
[2018-06-07] MEDS: acetaminophen 325mg tablet PO PRN ×2 (10:26→21:50)
--- NOTE | 2018-06-07 11:29 | NUR ---
PAGER ID: [phone] MESSAGE: Lea pulliam ortho, # [phone], Mr. Acosta, room 4011B, critical vanco of 23.5, drawn while [employer] was running, just an fyi
[2018-06-07 14:00] VITALS: BP 108/48
--- NOTE | 2018-06-07 15:00 | NUR ---
PAGER ID: [phone] MESSAGE: Lea moreno, # [phone], silvio, Mr. Acosta, room 4011B, blood culture, gram positive cocci in clusters from aerobic bottle, L arm Addendum: 06/07/18 at 1502 by Lea Byrd RN MD arrived at nurse's station as I was paging him, results were as expected
--- NOTE | 2018-06-07 15:37 | NUR ---
Pt continues to be non-compliant with care. Pt continually stops IV pump, takes shoulder wrap, cold pack off, stretching, reaching for items with the left shoulder. Education provided.
[2018-06-07] MEDS: cefepime 2g/NS 100ml ADVANTAGE 100 ML IV SCH (15:58)
--- NOTE | 2018-06-07 17:47 | NUR ---
PAGER ID: [phone] MESSAGE: Lea pulliam ortho, # [phone], silvio, Mr. Acosta in 4011B, [facility] trough was 25.3, thank you
[2018-06-07 17:54] LABS: HIV ANTIBODY 1&2 RAPID NON-REACTIVE (Neg)
[2018-06-07 18:00] VITALS: BP 132/50
[2018-06-07] MEDS ORDERED: CADD PCA waste documentation MC PRN (18:00)
[2018-06-07] MEDS ORDERED: naloxone 0.4 mg/ml inj IV PRN (18:00)
--- NOTE | 2018-06-07 18:20 | NUR ---
Problems reprioritized. Patient report given, questions answered & plan of care reviewed with Mary VENCES.
--- NOTE | 2018-06-07 18:38 | NUR ---
Patient in room ORTHO 4011. I have received report from Lea VENCES and had the opportunity to ask questions and assume patient care.
--- NOTE | 2018-06-07 19:00 | NUR ---
Changed patient's dressing due to soiling. New 4x4's and abd pad.
[2018-06-07] MEDS: HYDROmorphone/NS 1 mg/ml CADD 50 ML IV SCH ×3 (19:14→23:00)
[2018-06-07] MEDS: sennosides 8.6mg tablet PO SCH (21:02)
[2018-06-07] MEDS: rifampin 300mg capsule PO SCH (21:02)
[2018-06-07 22:00] VITALS: BP 139/81
--- NOTE | 2018-06-07 22:27 | NUR ---
Drainage running down patient's arm. New dressing applied. Patient moving arm alot and drainage just coming out. Patient has a temperature of 101.3 and Tylenol given.
[2018-06-08] MEDS: cefepime 2g/NS 100ml ADVANTAGE 100 ML IV SCH ×3 (00:04→19:39)
--- NOTE | 2018-06-08 00:24 | NUR ---
Changed dressing due to drainage. Cream colored pus draining from wound. Odor detected. New 4x4 and ABD pad. New shoulder sling and ice pack applied.
[2018-06-08] MEDS: HYDROmorphone/NS 1 mg/ml CADD 50 ML IV SCH ×11 (01:00→23:00)
[2018-06-08 02:03] LABS: BASOPHILS % (AUTO) 0.5 % (0-1); EOSINOPHILS # (AUTO) 0.2 X10'3 (0-0.9); EOSINOPHILS % (AUTO) 2.5 % (0-6); HEMATOCRIT 27.2 % (42.0-52.0); LYMPHOCYTES # (AUTO) 1.8 X10'3 (1.1-4.8); LYMPHOCYTES % (AUTO) 18.7 % (21-51); MEAN CORPUSCULAR HEMOGLOBIN 29.2 PG (27.0-31.0); MEAN CORPUSCULAR HGB CONC 33.1 g/dL (33.0-36.5); MEAN CORPUSCULAR VOLUME 88.2 FL (78-98); MEAN PLATELET VOLUME 7.7 FL (7.4-10.4); MONOCYTES # (AUTO) 1.2 X10'3 (0-0.9); MONOCYTES % (AUTO) 12.8 % (2-12); NEUTROPHILS # (AUTO) 6.4 X10'3 (1.8-7.7); NEUTROPHILS % (AUTO) 65.5 % (42-75); PLATELET COUNT 229 X10'3 (140-440); RED BLOOD COUNT 3.08 X10'6 (4.70-6.10); RED CELL DISTRIBUTION WIDTH 15.4 % (11.5-14.5); WHITE BLOOD COUNT 9.7 X10'3 (4.5-11.0)
[2018-06-08 02:11] LABS: ALANINE AMINOTRANSFERASE 22 U/L (12-78); ALBUMIN 2.5 G/DL (3.4-5.0); ALBUMIN/GLOBULIN RATIO 0.7 (1.1-1.5); ALKALINE PHOSPHATASE 53 IU/L (46-116); ANION GAP 8 (8-16); ASPARTATE AMINO TRANSFERASE 20 U/L (10-37); BILIRUBIN,TOTAL 0.5 MG/DL (0.1-1.0); BLOOD UREA NITROGEN 20 MG/DL (7-18); BUN/CREATININE RATIO 9.5 (5.4-32.0); CALCIUM 8.3 MG/DL (8.5-10.1); CHLORIDE 102 MMOL/L (99-107); GLUCOSE 105 MG/DL (70-104); POTASSIUM 4.4 MMOL/L (3.5-5.1); SODIUM 134 MMOL/L (135-145); TOTAL CARBON DIOXIDE 24.2 MMOL/L (24-32); VANCOMYCIN,TROUGH 18.2 UG/ML (6.0-14.0); eGFR 34 ML/MIN
--- NOTE | 2018-06-08 04:01 | NUR ---
Changed dressing on shoulder due to drainage and pus. New 4x4 and ABD.
[2018-06-08] MEDS: dextrose 5%-water 1,000 ML IV SCH ×2 (04:15→14:15)
[2018-06-08] MEDS: potassium cl 20mEq in 1/2 NS 1,000 ML IV SCH ×2 (05:00→13:10)
[2018-06-08 06:00] VITALS: BP 100/75
--- NOTE | 2018-06-08 06:12 | NUR ---
Problems reprioritized. Patient report given, questions answered & plan of care reviewed with Lea VENCES.
--- NOTE | 2018-06-08 06:25 | NUR ---
Patient in room ORTHO 4011. I have received report from Mary VENCES and had the opportunity to ask questions and assume patient care.
[2018-06-08] MEDS: labetalol 100mg tablet PO SCH ×3 (08:00→21:25)
[2018-06-08] MEDS: lisinopril 20mg tablet PO SCH (08:00)
[2018-06-08] MEDS: metoprolol succinate 25mg (24-HOUR) SR. Tablet PO SCH (08:00)
--- NOTE | 2018-06-08 09:00 | NUR ---
L shoulder dressing with moderate amount of serosang. drainage noted. Removed dressing with copious amounts of thick, greyish green drainage to mid inc. site. Incision measured 15 in. in length. Applied 1 adaptic dressing as well as 1 black foam for wound vac to incision site to L Shoulder. Applied wound vac according to protocol and orders to 50mmhg cont. Pt tolerated procedure well.
[2018-06-08] MEDS: pantoprazole 40mg Tablet.DR PO SCH (09:03)
[2018-06-08] MEDS: rifampin 300mg capsule PO SCH ×2 (09:03→21:25)
[2018-06-08] MEDS: lactobacillus rhamnosus 10,000 MMU CELLS/CAPSULE PO SCH ×2 (09:03→21:25)
[2018-06-08] MEDS: gabapentin 300mg capsule PO SCH ×3 (09:03→21:25)
[2018-06-08] MEDS: enoxaparin 40mg/0.4ml syringe SUBCUT SCH (09:05)
[2018-06-08] MEDS: insulin glargine (Lantus) pen - multi-dose SQ SCH ×2 (09:08→21:00)
[2018-06-08 10:00] VITALS: BP 123/65
[2018-06-08] MEDS ORDERED: cefepime 2g/NS 100ml ADVANTAGE 100 ML IV SCH (16:00)
[2018-06-08] MEDS ORDERED: lactulose 20gm/30ml cup PO STA (16:24)
[2018-06-08 18:00] VITALS: BP 114/48
--- NOTE | 2018-06-08 18:24 | NUR ---
Problems reprioritized. Patient report given, questions answered & plan of care reviewed with Mary VENCES.
[2018-06-08] MEDS ORDERED: hydrALAZINE 20mg/ml inj. IV PRN (18:30)
[2018-06-08] MEDS: normal saline 1000ml 1,000 ML IV SCH (19:39)
[2018-06-08 20:17] LABS: TOTAL PROTEIN,URINE RANDOM 22.7 MG/DL
[2018-06-08 20:23] LABS: CLARITY,URINE CLEAR (Clear); COLOR,URINE YELLOW (Yellow); GLUCOSE, URINE NEGATIVE (Neg); KETONES,URINE NEGATIVE (Neg); LEUKOCYTE ESTERASE ,URINE NEGATIVE (Neg); NITRITES, URINE NEGATIVE (Neg); OCCULT BLOOD,URINE NEGATIVE (Neg); PROTEIN,URINE NEGATIVE (Neg); UROBILINOGEN,URINE 0.2 E.U/dL (0.2-1.0)
[2018-06-08 20:26] LABS: UA COLLECTION TYPE URINAL
[2018-06-08] MEDS: sennosides 8.6mg tablet PO SCH (21:25)
[2018-06-08] MEDS: amLODIPine 5mg tablet PO SCH (21:25)
[2018-06-08] MEDS: LORazepam 1 MG tablet PO PRN (21:25)
[2018-06-08 22:00] VITALS: BP 142/96
--- NOTE | 2018-06-08 22:30 | NUR ---
Patient's S/O left to go home and the patient came out screaming and yelling to call security because the S/O had left her phone in his room. Patient was very upset. Patient kicking his IV pole and cussing.
[2018-06-08] MEDS ORDERED: oxyCODONE IR 5mg (immed. release) tablet PO PRN (23:20)
[2018-06-09] MEDS: dextrose 5%-water 1,000 ML IV SCH ×3 (00:15→20:15)
[2018-06-09] MEDS: HYDROmorphone/NS 1 mg/ml CADD 50 ML IV SCH ×12 (01:00→23:00)
[2018-06-09] MEDS ORDERED: VANCOMYCIN LEVEL IV SCH (03:00)
--- NOTE | 2018-06-09 03:08 | NUR ---
Patient woke up very confused and disorientated. BS taken and vitals taken. Patient alert and orientated now but very fatigued he says. Will continue to monitor.
--- NOTE | 2018-06-09 03:40 | NUR ---
Found a jar of weed in patients bag. Spoke with charge nurse and nursing building construction supervisor. Was told to hide in patients room out of reach of patient and will call s/o in the AM to come remove the drugs or they will be disposed off.
[2018-06-09 04:30] LABS: BASOPHILS % (AUTO) 0.4 % (0-1); EOSINOPHILS # (AUTO) 0.4 X10'3 (0-0.9); EOSINOPHILS % (AUTO) 6.1 % (0-6); HEMATOCRIT 26.1 % (42.0-52.0); HEMOGLOBIN 8.7 g/dl (14.0-17.9); LYMPHOCYTES # (AUTO) 1.4 X10'3 (1.1-4.8); LYMPHOCYTES % (AUTO) 24.1 % (21-51); MEAN CORPUSCULAR HEMOGLOBIN 29.3 PG (27.0-31.0); MEAN CORPUSCULAR HGB CONC 33.3 g/dL (33.0-36.5); MEAN CORPUSCULAR VOLUME 87.9 FL (78-98); MEAN PLATELET VOLUME 7.7 FL (7.4-10.4); MONOCYTES # (AUTO) 0.8 X10'3 (0-0.9); MONOCYTES % (AUTO) 14.3 % (2-12); NEUTROPHILS # (AUTO) 3.2 X10'3 (1.8-7.7); NEUTROPHILS % (AUTO) 55.1 % (42-75); PLATELET COUNT 221 X10'3 (140-440); RED BLOOD COUNT 2.97 X10'6 (4.70-6.10); RED CELL DISTRIBUTION WIDTH 15.6 % (11.5-14.5); WHITE BLOOD COUNT 5.8 X10'3 (4.5-11.0)
[2018-06-09 05:07] LABS: URINE AMPHETAMINE SCREEN NEGATIVE (Neg); URINE BARBITUATE SCREEN NEGATIVE (Neg); URINE BENZODIAZEPINES SCREEN NEGATIVE (Neg); URINE CANNABINOID SCREEN NEGATIVE (Neg); URINE COCAINE SCREEN NEGATIVE (Neg); URINE METHADONE SCREEN NEGATIVE (Neg); URINE OPIATE SCREEN POSITIVE (Neg); URINE PHENCYCLIDINE SCREEN NEGATIVE (Neg)
[2018-06-09] MEDS: normal saline 1000ml 1,000 ML IV SCH ×3 (05:15→19:53)
[2018-06-09 05:18] LABS: ALANINE AMINOTRANSFERASE 22 U/L (12-78); ALBUMIN 2.5 G/DL (3.4-5.0); ALBUMIN/GLOBULIN RATIO 0.7 (1.1-1.5); ALKALINE PHOSPHATASE 57 IU/L (46-116); ANION GAP 8 (8-16); ASPARTATE AMINO TRANSFERASE 18 U/L (10-37); BILIRUBIN,TOTAL 0.8 MG/DL (0.1-1.0); BLOOD UREA NITROGEN 17 MG/DL (7-18); BUN/CREATININE RATIO 10.4 (5.4-32.0); CALCIUM 9.2 MG/DL (8.5-10.1); CHLORIDE 108 MMOL/L (99-107); CREATININE 1.64 MG/DL (0.60-1.10); ETHANOL < 0.010 GM/DL (0.0-0.010); GLUCOSE 107 MG/DL (70-104); POTASSIUM 4.3 MMOL/L (3.5-5.1); SODIUM 140 MMOL/L (135-145); TOTAL CARBON DIOXIDE 23.8 MMOL/L (24-32); TOTAL PROTEIN 6.2 G/DL (6.4-8.2); VANCOMYCIN,RANDOM 11.2 UG/ML; eGFR 45 ML/MIN
[2018-06-09 06:00] VITALS: BP 141/54
--- NOTE | 2018-06-09 06:11 | NUR ---
RECEIVED REPORT FROM RU TAMAYO
--- NOTE | 2018-06-09 06:11 | NUR ---
RECEIVED REPORT FROM RU SHARMA
--- NOTE | 2018-06-09 06:30 | NUR ---
Problems reprioritized. Patient report given, questions answered & plan of care reviewed with Sarah VENCES.
[2018-06-09] MEDS: insulin glargine (Lantus) pen - multi-dose SQ SCH ×2 (07:20→21:00)
[2018-06-09] MEDS: rifampin 300mg capsule PO SCH ×2 (07:30→19:57)
[2018-06-09] MEDS: pantoprazole 40mg Tablet.DR PO SCH (07:30)
[2018-06-09] MEDS: lactobacillus rhamnosus 10,000 MMU CELLS/CAPSULE PO SCH ×2 (07:30→19:57)
[2018-06-09] MEDS: gabapentin 300mg capsule PO SCH ×3 (07:31→21:04)
[2018-06-09] MEDS: metoprolol succinate 25mg (24-HOUR) SR. Tablet PO SCH (07:31)
[2018-06-09] MEDS: amLODIPine 5mg tablet PO SCH ×2 (07:31→19:56)
[2018-06-09] MEDS: labetalol 100mg tablet PO SCH ×3 (07:31→21:05)
[2018-06-09] MEDS: enoxaparin 40mg/0.4ml syringe SUBCUT SCH (07:33)
[2018-06-09] MEDS: cefepime 2g/NS 100ml ADVANTAGE 100 ML IV SCH ×2 (07:34→19:57)
[2018-06-09 10:00] VITALS: BP 137/65
[2018-06-09] MEDS ORDERED: vancomycin/NS 1 GM ADD-VANTAGE 250 ML IV STA (11:54)
[2018-06-09 12:58] LABS: CREATININE 1.57 MG/DL (0.60-1.10); eGFR 47 ML/MIN
[2018-06-09] MEDS: vancomycin inj 1,250 MG in normal saline 250ml IV soln 250 ML IV SCH (14:29)
[2018-06-09 18:00] VITALS: BP 144/55
--- NOTE | 2018-06-09 18:16 | NUR ---
GAVE REPORT TO RU DAVIDSON
[2018-06-09] MEDS: sennosides 8.6mg tablet PO SCH (21:04)
[2018-06-09] MEDS: LORazepam 1 MG tablet PO PRN (21:11)
[2018-06-09 22:00] VITALS: BP 160/45
[2018-06-10] MEDS: HYDROmorphone/NS 1 mg/ml CADD 50 ML IV SCH ×12 (01:00→23:00)
[2018-06-10] MEDS: vancomycin inj 1,250 MG in normal saline 250ml IV soln 250 ML IV SCH ×2 (02:42→15:51)
[2018-06-10 06:00] VITALS: BP 145/57
[2018-06-10] MEDS ORDERED: vancomycin/NS 1 GM ADD-VANTAGE 250 ML IV PRN (06:00)
[2018-06-10 06:30] LABS: BASOPHILS % (AUTO) 0.7 % (0-1); EOSINOPHILS # (AUTO) 0.4 X10'3 (0-0.9); EOSINOPHILS % (AUTO) 7.2 % (0-6); LYMPHOCYTES # (AUTO) 1.6 X10'3 (1.1-4.8); LYMPHOCYTES % (AUTO) 30.1 % (21-51); MEAN CORPUSCULAR HGB CONC 33.2 g/dL (33.0-36.5); MEAN CORPUSCULAR VOLUME 87.2 FL (78-98); MEAN PLATELET VOLUME 7.7 FL (7.4-10.4); MONOCYTES # (AUTO) 0.6 X10'3 (0-0.9); MONOCYTES % (AUTO) 11.3 % (2-12); NEUTROPHILS # (AUTO) 2.6 X10'3 (1.8-7.7); NEUTROPHILS % (AUTO) 50.7 % (42-75); PLATELET COUNT 236 X10'3 (140-440); RED CELL DISTRIBUTION WIDTH 15.4 % (11.5-14.5); WHITE BLOOD COUNT 5.2 X10'3 (4.5-11.0)
[2018-06-10 06:45] LABS: ALANINE AMINOTRANSFERASE 26 U/L (12-78); ALBUMIN 2.6 G/DL (3.4-5.0); ALBUMIN/GLOBULIN RATIO 0.7 (1.1-1.5); ALKALINE PHOSPHATASE 64 IU/L (46-116); ANION GAP 9 (8-16); ASPARTATE AMINO TRANSFERASE 22 U/L (10-37); BILIRUBIN,TOTAL 0.6 MG/DL (0.1-1.0); BLOOD UREA NITROGEN 15 MG/DL (7-18); BUN/CREATININE RATIO 10.6 (5.4-32.0); CALCIUM 9.5 MG/DL (8.5-10.1); CHLORIDE 105 MMOL/L (99-107); CREATININE 1.42 MG/DL (0.60-1.10); GLUCOSE 98 MG/DL (70-104); SODIUM 141 MMOL/L (135-145); TOTAL CARBON DIOXIDE 26.6 MMOL/L (24-32); TOTAL PROTEIN 6.5 G/DL (6.4-8.2); VANCOMYCIN,RANDOM 28.7 UG/ML; eGFR 53 ML/MIN
[2018-06-10] MEDS: normal saline 1000ml 1,000 ML IV SCH ×2 (08:53→20:15)
[2018-06-10] MEDS: pantoprazole 40mg Tablet.DR PO SCH (09:53)
[2018-06-10] MEDS: amLODIPine 5mg tablet PO SCH ×2 (09:54→20:11)
[2018-06-10] MEDS: labetalol 100mg tablet PO SCH ×3 (09:54→20:11)
[2018-06-10] MEDS: metoprolol succinate 25mg (24-HOUR) SR. Tablet PO SCH (09:54)
[2018-06-10] MEDS: gabapentin 300mg capsule PO SCH ×3 (09:54→20:11)
[2018-06-10] MEDS: lactobacillus rhamnosus 10,000 MMU CELLS/CAPSULE PO SCH ×2 (09:54→20:11)
[2018-06-10] MEDS: enoxaparin 40mg/0.4ml syringe SUBCUT SCH (09:55)
[2018-06-10] MEDS: cefepime 2g/NS 100ml ADVANTAGE 100 ML IV SCH ×2 (09:59→20:12)
[2018-06-10 10:00] VITALS: BP_SYST 140; BP_SYST 157; BP_DIAS 67; BP_DIAS 75
[2018-06-10] MEDS ORDERED: lactulose 20gm/30ml cup PO ONE (10:10)
[2018-06-10] MEDS: rifampin 300mg capsule PO SCH ×2 (10:35→20:11)
[2018-06-10] MEDS: insulin glargine (Lantus) pen - multi-dose SQ SCH ×2 (10:37→21:00)
--- NOTE | 2018-06-10 11:49 | NUR ---
WOUND VAC EDUCATION PROVIDED BY WOUND CARE 1. Patient instructed to call the Wound Center or their Home Health Agency immediately if: * They notice a change in the color or amount of the fluid in the canister. * Their wound looks more red than usual or has a foul smell. * The skin around their wound looks reddened or irritated. * The dressing feels loose or appears to be loose. * They experience any increase or changes in their pain. * The alarm will not turn off. 2. Patient instructed that they should not be disconnected from suction for more than 2 hours at a time. * If they are not able to get the suction back on, they need to remove the dressing and take all of the foam out of the wound. * Then moisten sterile gauze with normal saline and place on/in the wound. * Change the dressing once a day until arrangements have been made to replace the wound vac dressing. 3. Patient instructed to turn the wound vac machine OFF and call 911 or go to the ED immediately if their canister fills rapidly with blood. 4. If any of these occur while in the hospital tell a nurse immediately. Addendum: 06/10/18 at 1149 by Tamie Cordero RN Amended: Links added.
[2018-06-10 18:00] VITALS: BP 144/50
--- NOTE | 2018-06-10 18:23 | NUR ---
Problems reprioritized. Patient report given, questions answered & plan of care reviewed with LIEN VENCES.
--- NOTE | 2018-06-10 18:23 | NUR ---
Received report from Candida VENCES, assumed care of patient.
[2018-06-10] MEDS: sennosides 8.6mg tablet PO SCH (20:11)
--- NOTE | 2018-06-10 21:45 | NUR ---
Lab in to attempt to collect blood cultures as ordered by ID. Patient became very loud and upset that the tractor operator laser leveling attempted to collect blood from a vein not of his choice. In doing so he caused the needle to become dislodged and the tractor operator laser leveling was almost stuck with the needle. Blood cultures were not collected at this time. Patient verbalized understanding that 0130 I the nurse would be back to attempt to collect blood for the cultures and vanco trough as ordered. Pt verbalized that he is tired of being poked and having to deal with all of these antibiotics. Pt does verbalize that he knows the reason for the labs and the need for the antibiotics but he is just over having to be poked as his veins are no longer good. Attempt was made to reassure patient and his feelings at this time. Pt denied having any other needs, call light within reach, will continue to monitor.
[2018-06-10 22:00] VITALS: BP 173/50
[2018-06-11] MEDS: nafcillin inj 2 GM in normal saline 100ml IV soln 100 ML IV SCH ×6 (00:03→20:50)
--- NOTE | 2018-06-11 00:15 | NUR ---
Vanco trough lab for 0130 was cancelled r/t vanco order being discontinued.
[2018-06-11] MEDS: HYDROmorphone/NS 1 mg/ml CADD 50 ML IV SCH ×7 (01:00→13:00)
[2018-06-11] MEDS ORDERED: VANCOMYCIN LEVEL IV NR (01:30)
[2018-06-11 06:00] VITALS: BP 131/65
--- NOTE | 2018-06-11 06:33 | NUR ---
Report given to Candida VENCES.
[2018-06-11 06:34] LABS: BASOPHILS % (AUTO) 0.9 % (0-1); EOSINOPHILS # (AUTO) 0.3 X10'3 (0-0.9); EOSINOPHILS % (AUTO) 6.3 % (0-6); HEMATOCRIT 27.3 % (42.0-52.0); HEMOGLOBIN 9.2 g/dl (14.0-17.9); LYMPHOCYTES # (AUTO) 1.6 X10'3 (1.1-4.8); LYMPHOCYTES % (AUTO) 31.6 % (21-51); MEAN CORPUSCULAR HEMOGLOBIN 29.1 PG (27.0-31.0); MEAN CORPUSCULAR HGB CONC 33.7 g/dL (33.0-36.5); MEAN CORPUSCULAR VOLUME 86.4 FL (78-98); MEAN PLATELET VOLUME 7.2 FL (7.4-10.4); MONOCYTES # (AUTO) 0.7 X10'3 (0-0.9); MONOCYTES % (AUTO) 13.5 % (2-12); NEUTROPHILS # (AUTO) 2.4 X10'3 (1.8-7.7); NEUTROPHILS % (AUTO) 47.7 % (42-75); PLATELET COUNT 264 X10'3 (140-440); RED BLOOD COUNT 3.16 X10'6 (4.70-6.10); RED CELL DISTRIBUTION WIDTH 14.8 % (11.5-14.5)
--- NOTE | 2018-06-11 06:46 | NUR ---
Patient in room ORTHO 4011. I have received report from Tori VENCES and had the opportunity to ask questions and assume patient care.
[2018-06-11 06:51] LABS: ALANINE AMINOTRANSFERASE 30 U/L (12-78); ALBUMIN 2.7 G/DL (3.4-5.0); ALBUMIN/GLOBULIN RATIO 0.7 (1.1-1.5); ALKALINE PHOSPHATASE 66 IU/L (46-116); ANION GAP 9 (8-16); ASPARTATE AMINO TRANSFERASE 25 U/L (10-37); BILIRUBIN,TOTAL 0.7 MG/DL (0.1-1.0); BLOOD UREA NITROGEN 13 MG/DL (7-18); BUN/CREATININE RATIO 9.4 (5.4-32.0); CALCIUM 9.4 MG/DL (8.5-10.1); CHLORIDE 104 MMOL/L (99-107); CREATININE 1.39 MG/DL (0.60-1.10); GLUCOSE 96 MG/DL (70-104); POTASSIUM 3.9 MMOL/L (3.5-5.1); SODIUM 141 MMOL/L (135-145); TOTAL CARBON DIOXIDE 28.5 MMOL/L (24-32); TOTAL PROTEIN 6.8 G/DL (6.4-8.2); eGFR 54 ML/MIN
[2018-06-11] MEDS: enoxaparin 40mg/0.4ml syringe SUBCUT SCH (08:00)
[2018-06-11] MEDS: normal saline 1000ml 1,000 ML IV SCH ×3 (08:37→20:55)
[2018-06-11] MEDS: metoprolol succinate 25mg (24-HOUR) SR. Tablet PO SCH (09:32)
[2018-06-11] MEDS: rifampin 300mg capsule PO SCH ×2 (09:32→19:35)
[2018-06-11] MEDS: labetalol 100mg tablet PO SCH ×3 (09:32→20:51)
[2018-06-11] MEDS: pantoprazole 40mg Tablet.DR PO SCH (09:33)
[2018-06-11] MEDS: gabapentin 300mg capsule PO SCH ×3 (09:33→20:51)
[2018-06-11] MEDS: amLODIPine 5mg tablet PO SCH ×2 (09:33→19:35)
[2018-06-11] MEDS: lactobacillus rhamnosus 10,000 MMU CELLS/CAPSULE PO SCH ×2 (09:33→19:35)
[2018-06-11] MEDS: insulin glargine (Lantus) pen - multi-dose SQ SCH ×2 (09:36→20:58)
[2018-06-11 10:00] VITALS: BP 156/75
--- NOTE | 2018-06-11 11:35 | NUR ---
Initial: Pt admit w/ cellulitis s/p I&D following L TSA prior admit. Hx T2DM A1C <7. RD provided pt w/ written/verbal high protein handout and RD contact information. Pt agrees to double eggs, whole milk, season packet, gravy w/ meats, and ensure high protein TIDWM; requests head refrigeration engineer salad w/ dinners and side salad at Lunch. MD and dietary notified. Pt PO fluctuates 0-100% meals but reports brought his own seasoning and good appetite. LBM 06/08 w/ MoM PRN. Will continue to monitor. Rec: 1. continue carb controlled 2. ensure high protein TIDWM 3. honor pt food preferences, see above 4. MVI for wound per MD 5. wt per rx Addendum: 06/11/18 at [address] Amended: Links added.
[2018-06-11] MEDS: lactose-reduced food (Ensure High Protein) 237ml bottle PO SCH ×2 (13:00→18:00)
[2018-06-11] MEDS ORDERED: oxyCODONE IR 5mg (immed. release) tablet PO ONE (17:50)
[2018-06-11 18:00] VITALS: BP 193/58
[2018-06-11] MEDS ORDERED: HYDROmorphone 1 mg/ml syringe IV ONE (18:05)
--- NOTE | 2018-06-11 18:34 | NUR ---
Problems reprioritized. Patient report given, questions answered & plan of care reviewed with Mary VENCES.
--- NOTE | 2018-06-11 18:41 | NUR ---
Patient in room ORTHO 4011. I have received report from Candida VENCES and had the opportunity to ask questions and assume patient care.
[2018-06-11 19:30] VITALS: BP 140/63
[2018-06-11] MEDS: sennosides 8.6mg tablet PO SCH (20:51)
[2018-06-11 22:00] VITALS: BP 109/73
[2018-06-11] MEDS: oxyCODONE IR 5mg (immed. release) tablet PO PRN (22:31)
[2018-06-12] MEDS: nafcillin inj 2 GM in normal saline 100ml IV soln 100 ML IV SCH ×7 (00:35→23:51)
[2018-06-12] MEDS: oxyCODONE IR 5mg (immed. release) tablet PO PRN ×5 (02:16→21:56)
--- NOTE | 2018-06-12 05:55 | NUR ---
50ml of drainage out in wound vac last 12 hours.
--- NOTE | 2018-06-12 06:30 | NUR ---
Problems reprioritized. Patient report given, questions answered & plan of care reviewed with Candida VENCES.
[2018-06-12] MEDS: pantoprazole 40mg Tablet.DR PO SCH (07:30)
[2018-06-12 07:31] VITALS: BP 158/70
[2018-06-12] MEDS: enoxaparin 40mg/0.4ml syringe SUBCUT SCH (08:00)
[2018-06-12] MEDS: insulin glargine (Lantus) pen - multi-dose SQ SCH ×2 (08:55→21:00)
[2018-06-12] MEDS: amLODIPine 5mg tablet PO SCH ×2 (08:55→20:14)
[2018-06-12] MEDS: rifampin 300mg capsule PO SCH ×2 (08:56→20:14)
[2018-06-12] MEDS: lactobacillus rhamnosus 10,000 MMU CELLS/CAPSULE PO SCH ×2 (08:56→20:14)
[2018-06-12] MEDS: labetalol 100mg tablet PO SCH ×3 (08:56→20:14)
[2018-06-12] MEDS: metoprolol succinate 25mg (24-HOUR) SR. Tablet PO SCH (08:56)
[2018-06-12] MEDS: gabapentin 300mg capsule PO SCH ×3 (08:56→20:14)
[2018-06-12 08:59] LABS: BASOPHILS % (AUTO) 0.8 % (0-1); EOSINOPHILS # (AUTO) 0.3 X10'3 (0-0.9); HEMATOCRIT 30.9 % (42.0-52.0); HEMOGLOBIN 10.6 g/dl (14.0-17.9); LYMPHOCYTES # (AUTO) 1.4 X10'3 (1.1-4.8); LYMPHOCYTES % (AUTO) 25.6 % (21-51); MEAN CORPUSCULAR HEMOGLOBIN 29.4 PG (27.0-31.0); MEAN CORPUSCULAR HGB CONC 34.2 g/dL (33.0-36.5); MEAN CORPUSCULAR VOLUME 86.2 FL (78-98); MEAN PLATELET VOLUME 7.3 FL (7.4-10.4); MONOCYTES # (AUTO) 0.7 X10'3 (0-0.9); MONOCYTES % (AUTO) 12.1 % (2-12); NEUTROPHILS # (AUTO) 3.2 X10'3 (1.8-7.7); NEUTROPHILS % (AUTO) 56.5 % (42-75); PLATELET COUNT 277 X10'3 (140-440); RED BLOOD COUNT 3.59 X10'6 (4.70-6.10); WHITE BLOOD COUNT 5.6 X10'3 (4.5-11.0)
[2018-06-12 09:09] LABS: ALANINE AMINOTRANSFERASE 31 U/L (12-78); ALBUMIN 2.7 G/DL (3.4-5.0); ALBUMIN/GLOBULIN RATIO 0.7 (1.1-1.5); ALKALINE PHOSPHATASE 70 IU/L (46-116); ANION GAP 8 (8-16); ASPARTATE AMINO TRANSFERASE 21 U/L (10-37); BILIRUBIN,TOTAL 0.4 MG/DL (0.1-1.0); BLOOD UREA NITROGEN 13 MG/DL (7-18); BUN/CREATININE RATIO 9.6 (5.4-32.0); CALCIUM 9.3 MG/DL (8.5-10.1); CHLORIDE 105 MMOL/L (99-107); CREATININE 1.36 MG/DL (0.60-1.10); GLUCOSE 105 MG/DL (70-104); POTASSIUM 3.9 MMOL/L (3.5-5.1); SODIUM 141 MMOL/L (135-145); TOTAL CARBON DIOXIDE 28.5 MMOL/L (24-32); TOTAL PROTEIN 6.8 G/DL (6.4-8.2); eGFR 55 ML/MIN
[2018-06-12 10:00] VITALS: BP 162/66
[2018-06-12] MEDS: normal saline 1000ml 1,000 ML IV SCH ×2 (12:26→22:20)
[2018-06-12] MEDS: lactose-reduced food (Ensure High Protein) 237ml bottle PO SCH (18:00)
--- NOTE | 2018-06-12 18:24 | NUR ---
Problems reprioritized. Patient report given, questions answered & plan of care reviewed with Mary VENCES.
--- NOTE | 2018-06-12 18:34 | NUR ---
Patient in room ORTHO 4011. I have received report from Candida VENCES and had the opportunity to ask questions and assume patient care.
[2018-06-12] MEDS ORDERED: oxyCODONE IR 5mg (immed. release) tablet PO ONE (19:35)
[2018-06-12 20:15] VITALS: BP 164/79
[2018-06-12] MEDS: sennosides 8.6mg tablet PO SCH (20:15)
[2018-06-12 22:00] VITALS: BP 140/58
[2018-06-13] MEDS: oxyCODONE IR 5mg (immed. release) tablet PO PRN ×6 (01:55→22:36)
[2018-06-13] MEDS: nafcillin inj 2 GM in normal saline 100ml IV soln 100 ML IV SCH ×5 (04:04→20:33)
[2018-06-13] MEDS: normal saline 1000ml 1,000 ML IV SCH ×2 (05:51→16:58)
[2018-06-13 05:58] LABS: BASOPHILS # (AUTO) 0.1 X10'3 (0-0.2); EOSINOPHILS # (AUTO) 0.3 X10'3 (0-0.9); EOSINOPHILS % (AUTO) 4.9 % (0-6); HEMATOCRIT 28.6 % (42.0-52.0); HEMOGLOBIN 9.6 g/dl (14.0-17.9); LYMPHOCYTES # (AUTO) 1.5 X10'3 (1.1-4.8); MEAN CORPUSCULAR HGB CONC 33.4 g/dL (33.0-36.5); MEAN CORPUSCULAR VOLUME 86.7 FL (78-98); MEAN PLATELET VOLUME 7.1 FL (7.4-10.4); MONOCYTES # (AUTO) 0.7 X10'3 (0-0.9); MONOCYTES % (AUTO) 11.3 % (2-12); NEUTROPHILS # (AUTO) 3.3 X10'3 (1.8-7.7); NEUTROPHILS % (AUTO) 56.8 % (42-75); PLATELET COUNT 248 X10'3 (140-440); RED CELL DISTRIBUTION WIDTH 15.2 % (11.5-14.5); WHITE BLOOD COUNT 5.8 X10'3 (4.5-11.0)
[2018-06-13 06:00] VITALS: BP 154/82
[2018-06-13 06:05] LABS: ALANINE AMINOTRANSFERASE 25 U/L (12-78); ALBUMIN 2.6 G/DL (3.4-5.0); ALBUMIN/GLOBULIN RATIO 0.7 (1.1-1.5); ALKALINE PHOSPHATASE 67 IU/L (46-116); ANION GAP 8 (8-16); ASPARTATE AMINO TRANSFERASE 16 U/L (10-37); BILIRUBIN,TOTAL 0.6 MG/DL (0.1-1.0); BLOOD UREA NITROGEN 13 MG/DL (7-18); BUN/CREATININE RATIO 9.8 (5.4-32.0); CALCIUM 8.8 MG/DL (8.5-10.1); CHLORIDE 107 MMOL/L (99-107); CREATININE 1.32 MG/DL (0.60-1.10); GLUCOSE 103 MG/DL (70-104); POTASSIUM 3.7 MMOL/L (3.5-5.1); SODIUM 143 MMOL/L (135-145); TOTAL CARBON DIOXIDE 28.1 MMOL/L (24-32); TOTAL PROTEIN 6.4 G/DL (6.4-8.2); eGFR 57 ML/MIN
--- NOTE | 2018-06-13 06:11 | NUR ---
Problems reprioritized. Patient report given, questions answered & plan of care reviewed with Lea VENCES.
--- NOTE | 2018-06-13 06:15 | NUR ---
Patient in room ORTHO 4011. I have received report from Mary VENCES and had the opportunity to ask questions and assume patient care.
[2018-06-13] MEDS: lactobacillus rhamnosus 10,000 MMU CELLS/CAPSULE PO SCH ×2 (07:30→20:31)
[2018-06-13] MEDS: gabapentin 300mg capsule PO SCH ×3 (07:30→20:32)
[2018-06-13] MEDS: pantoprazole 40mg Tablet.DR PO SCH (07:30)
[2018-06-13] MEDS: amLODIPine 5mg tablet PO SCH ×2 (07:32→20:31)
[2018-06-13] MEDS: rifampin 300mg capsule PO SCH ×2 (07:32→20:32)
[2018-06-13] MEDS: enoxaparin 40mg/0.4ml syringe SUBCUT SCH (07:33)
[2018-06-13] MEDS: labetalol 100mg tablet PO SCH ×3 (07:33→20:32)
[2018-06-13] MEDS: metoprolol succinate 25mg (24-HOUR) SR. Tablet PO SCH (07:33)
[2018-06-13 08:30] VITALS: BP 150/59
[2018-06-13] MEDS: lactose-reduced food (Ensure High Protein) 237ml bottle PO SCH ×3 (08:45→18:38)
[2018-06-13] MEDS: insulin glargine (Lantus) pen - multi-dose SQ SCH ×2 (08:49→20:42)
[2018-06-13 10:00] VITALS: BP 135/60
[2018-06-13 12:15] VITALS: BP 151/90
--- NOTE | 2018-06-13 16:35 | NUR ---
Student documentation: I have reviewed and agree with all interventions, assessments performed and documented by Ute MACHADO
[2018-06-13 18:00] VITALS: BP 140/80
--- NOTE | 2018-06-13 18:23 | NUR ---
Problems reprioritized. Patient report given, questions answered & plan of care reviewed with Mary VENCES.
--- NOTE | 2018-06-13 18:23 | NUR ---
Patient in room ORTHO 4011. I have received report from Lea VENCES and had the opportunity to ask questions and assume patient care.
[2018-06-13] MEDS: sennosides 8.6mg tablet PO SCH (20:32)
[2018-06-13 22:00] VITALS: BP 141/49
--- NOTE | 2018-06-13 22:42 | NUR ---
Patient complaining that he feels like there is a build up of fluid in his shoulder. Shoulder assessed and wound vac still set for 125hhmg low continuos. Dressing CDI. Drainage seen in tubing and being collected into canister. Patient requested to have a heat pack.
[2018-06-14] MEDS: nafcillin inj 2 GM in normal saline 100ml IV soln 100 ML IV SCH ×3 (00:08→07:46)
[2018-06-14] MEDS: oxyCODONE IR 5mg (immed. release) tablet PO PRN ×3 (02:09→10:02)
[2018-06-14 03:39] LABS: BASOPHILS # (AUTO) 0.1 X10'3 (0-0.2); BASOPHILS % (AUTO) 0.8 % (0-1); EOSINOPHILS # (AUTO) 0.4 X10'3 (0-0.9); EOSINOPHILS % (AUTO) 5.7 % (0-6); HEMATOCRIT 27.9 % (42.0-52.0); HEMOGLOBIN 9.3 g/dl (14.0-17.9); LYMPHOCYTES # (AUTO) 1.5 X10'3 (1.1-4.8); LYMPHOCYTES % (AUTO) 24.8 % (21-51); MEAN CORPUSCULAR HEMOGLOBIN 28.8 PG (27.0-31.0); MEAN CORPUSCULAR HGB CONC 33.2 g/dL (33.0-36.5); MEAN CORPUSCULAR VOLUME 86.7 FL (78-98); MEAN PLATELET VOLUME 7.2 FL (7.4-10.4); MONOCYTES # (AUTO) 0.6 X10'3 (0-0.9); MONOCYTES % (AUTO) 9.8 % (2-12); NEUTROPHILS # (AUTO) 3.6 X10'3 (1.8-7.7); NEUTROPHILS % (AUTO) 58.9 % (42-75); PLATELET COUNT 243 X10'3 (140-440); RED BLOOD COUNT 3.22 X10'6 (4.70-6.10); RED CELL DISTRIBUTION WIDTH 15.2 % (11.5-14.5); WHITE BLOOD COUNT 6.2 X10'3 (4.5-11.0)
[2018-06-14 03:49] LABS: ALANINE AMINOTRANSFERASE 20 U/L (12-78); ALBUMIN 2.5 G/DL (3.4-5.0); ALBUMIN/GLOBULIN RATIO 0.7 (1.1-1.5); ALKALINE PHOSPHATASE 69 IU/L (46-116); ANION GAP 7 (8-16); ASPARTATE AMINO TRANSFERASE 17 U/L (10-37); BILIRUBIN,TOTAL 0.4 MG/DL (0.1-1.0); BLOOD UREA NITROGEN 12 MG/DL (7-18); CALCIUM 8.6 MG/DL (8.5-10.1); CHLORIDE 108 MMOL/L (99-107); GLUCOSE 100 MG/DL (70-104); POTASSIUM 3.8 MMOL/L (3.5-5.1); SODIUM 143 MMOL/L (135-145); TOTAL CARBON DIOXIDE 27.7 MMOL/L (24-32); TOTAL PROTEIN 6.2 G/DL (6.4-8.2); eGFR 64 ML/MIN
[2018-06-14] MEDS: normal saline 1000ml 1,000 ML IV SCH (03:59)
[2018-06-14 06:00] VITALS: BP 169/73
--- NOTE | 2018-06-14 06:10 | NUR ---
Patient in room ORTHO 4011. I have received report from Mary VENCES and had the opportunity to ask questions and assume patient care.
--- NOTE | 2018-06-14 06:12 | NUR ---
Problems reprioritized. Patient report given, questions answered & plan of care reviewed with Lea VENCES.
[2018-06-14] MEDS: gabapentin 300mg capsule PO SCH (07:47)
[2018-06-14] MEDS: lactobacillus rhamnosus 10,000 MMU CELLS/CAPSULE PO SCH (07:47)
[2018-06-14] MEDS: pantoprazole 40mg Tablet.DR PO SCH (07:47)
[2018-06-14] MEDS: rifampin 300mg capsule PO SCH (07:47)
[2018-06-14] MEDS: labetalol 100mg tablet PO SCH (07:52)
[2018-06-14] MEDS: amLODIPine 5mg tablet PO SCH (07:52)
[2018-06-14] MEDS: metoprolol succinate 25mg (24-HOUR) SR. Tablet PO SCH (07:52)
[2018-06-14] MEDS: enoxaparin 40mg/0.4ml syringe SUBCUT SCH (08:00)
[2018-06-14] MEDS: insulin glargine (Lantus) pen - multi-dose SQ SCH (08:42)
[2018-06-14] MEDS: lactose-reduced food (Ensure High Protein) 237ml bottle PO SCH (08:47)
--- NOTE | 2018-06-14 10:20 | NUR ---
Report called to Cailin [place]. Spoke with RU Mayes. Provided history, current synopsis, meds, ambulation, wound vac info, PICC info. Pt was wheeled downstairs by [facility] personnel. All belongings were returned to pt. Reviewed plan of care with pt.
== END 2018-06-14 10:15 | DRG 483 ==
LOC: ER 00:32 → ED HOLD 03:48 → EDBEDREQ 07:08 → ORTHO 4S 07:15
PROVIDERS: ADMIT Internal Medicine; ATTEND Orthopaedic Surgery
PROC: BP2U1ZZ Computerized Tomography (CT Scan) of Left Upper Extremity using Low Osmolar Contrast (ICD-10-PCS; 2018-06-06)
PROC: 0RPK0JZ Removal of Synthetic Substitute from Left Shoulder Joint, Open Approach (ICD-10-PCS; 2018-06-06)
PROC: 3E0U029 Introduction of Other Anti-infective into Joints, Open Approach (ICD-10-PCS; 2018-06-06)
PROC: 0RRK0J7 Replacement of Left Shoulder Joint with Synthetic Substitute, Glenoid Surface, Open Approach (ICD-10-PCS; principal; 2018-06-06 15:32)
PROC: 02HV33Z Insertion of Infusion Device into Superior Vena Cava, Percutaneous Approach (ICD-10-PCS; 2018-06-13)
PROC: 4A02X4A Measurement of Cardiac Electrical Activity, Guidance, External Approach (ICD-10-PCS; 2018-06-13)
PROC: B548ZZA Ultrasonography of Superior Vena Cava, Guidance (ICD-10-PCS; 2018-06-13)
DX: T84.59XA Infection and inflammatory reaction due to other internal joint prosthesis, initial encounter (principal); A41.01 Sepsis due to Methicillin susceptible Staphylococcus aureus; M00.9 Pyogenic arthritis, unspecified; L03.114 Cellulitis of left upper limb; N17.9 Acute kidney failure, unspecified; L02.414 Cutaneous abscess of left upper limb; M96.840 Postprocedural hematoma of a musculoskeletal structure following a musculoskeletal system procedure; I25.10 Atherosclerotic heart disease of native coronary artery without angina pectoris; I12.9 Hypertensive chronic kidney disease with stage 1 through stage 4 chronic kidney disease, or unspecified chronic kidney disease; D64.9 Anemia, unspecified; K21.9 Gastro-esophageal reflux disease without esophagitis; M19.212 Secondary osteoarthritis, left shoulder; N18.9 Chronic kidney disease, unspecified; G89.29 Other chronic pain; E11.22 Type 2 diabetes mellitus with diabetic chronic kidney disease; E78.00 Pure hypercholesterolemia, unspecified; E78.5 Hyperlipidemia, unspecified; F41.8 Other specified anxiety disorders; Y83.1 Surgical operation with implant of artificial internal device as the cause of abnormal reaction of the patient, or of later complication, without mention of misadventure at the time of the procedure; I25.2 Old myocardial infarction; Z95.5 Presence of coronary angioplasty implant and graft; Z79.4 Long term (current) use of insulin; Z87.891 Personal history of nicotine dependence; Z86.73 Personal history of transient ischemic attack (TIA), and cerebral infarction without residual deficits; Y92.89 Other specified places as the place of occurrence of the external cause
CPT/HCPCS: 36415; 36569; 71045; 73030; 73201; 74018; 76775; 76937; 80053; 80202; 80305; 80320; 81003; 82565; 82570; 82948; 83605; 83735; 83935; 84145; 84156; 84300; 85025; 85610; 85651; 85730; 86140; 86703; 87040; 87070; 87075; 87077; 87102; 87186; 93005; 93306; 96365; 96366; 96368; 96375; 97110; 97162; 97530; 99285; A4565; A7000; A9272; C1713; C9113; G0378; J0692; J1170; J1650; J1815; J1885; J2001; J2250; J2405; J2543; J2704; J2795; J3010; J3260; J3370; J3490; J7030; J7070; J7120; Q9967

== ENCOUNTER 2019-01-16 09:09 | Emergency (ER) | payer MEDICARE, MEDICAID ==
[~2019-01-16] VITALS: Ht 182.9 cm; Wt 115.0 kg
[~2019-01-16 09:09] MED LIST changes: +CELE-193 PO; +HYDR-3972 PO; +INSU100C10 SQ; +INSU100I31 SQ; -LANTUS SQ; +METO50TA7 PO; -NOVLG; +OXYC-580 PO; +OXYC5CAP19 PO
[2019-01-16 10:16] LABS: BASOPHILS % (AUTO) 0.6 % (0-1); EOSINOPHILS # (AUTO) 0.6 X10'3 (0-0.9); EOSINOPHILS % (AUTO) 9.8 % (0-6); HEMATOCRIT 39.9 % (42.0-52.0); HEMOGLOBIN 13.6 g/dl (14.0-17.9); LYMPHOCYTES # (AUTO) 1.1 X10'3 (1.1-4.8); LYMPHOCYTES % (AUTO) 17.3 % (21-51); MEAN CORPUSCULAR HEMOGLOBIN 31.4 PG (27.0-31.0); MEAN CORPUSCULAR HGB CONC 34.2 g/dL (33.0-36.5); MEAN CORPUSCULAR VOLUME 91.7 FL (78-98); MEAN PLATELET VOLUME 7.4 FL (7.4-10.4); MONOCYTES # (AUTO) 0.6 X10'3 (0-0.9); MONOCYTES % (AUTO) 10.5 % (2-12); NEUTROPHILS # (AUTO) 3.8 X10'3 (1.8-7.7); NEUTROPHILS % (AUTO) 61.8 % (42-75); PLATELET COUNT 167 X10'3 (140-440); RED BLOOD COUNT 4.35 X10'6 (4.70-6.10); RED CELL DISTRIBUTION WIDTH 14.9 % (11.5-14.5); WHITE BLOOD COUNT 6.1 X10'3 (4.5-11.0)
[2019-01-16 10:39] LABS: ALANINE AMINOTRANSFERASE 92 U/L (12-78); ALBUMIN 3.6 G/DL (3.4-5.0); ALBUMIN/GLOBULIN RATIO 0.8 (1.1-1.5); ALKALINE PHOSPHATASE 107 IU/L (46-116); ANION GAP 9 (8-16); ASPARTATE AMINO TRANSFERASE 85 U/L (10-37); BILIRUBIN,TOTAL 0.4 MG/DL (0.1-1.0); BLOOD UREA NITROGEN 9 MG/DL (7-18); BUN/CREATININE RATIO 8.1 (5.4-32.0); CHLORIDE 105 MMOL/L (99-107); CREATININE 1.11 MG/DL (0.60-1.10); GLUCOSE 131 MG/DL (70-104); POTASSIUM 3.9 MMOL/L (3.5-5.1); SODIUM 141 MMOL/L (135-145); TOTAL CARBON DIOXIDE 26.8 MMOL/L (24-32); TOTAL PROTEIN 7.9 G/DL (6.4-8.2); eGFR 70 ML/MIN
[2019-01-16] MEDS ORDERED: SULF1TAB49 PO (11:35)
[2019-01-16] MEDS ORDERED: CEPH500C5 PO (11:35)
[2019-01-16 11:41] VITALS: BP 218/109
== END 2019-01-16 11:52 | disposition home or self-care (01) ==
LOC: ER 09:10
DX: L03.113 Cellulitis of right upper limb (principal); J06.9 Acute upper respiratory infection, unspecified; E11.9 Type 2 diabetes mellitus without complications; I25.10 Atherosclerotic heart disease of native coronary artery without angina pectoris; E78.00 Pure hypercholesterolemia, unspecified; I10 Essential (primary) hypertension; K21.9 Gastro-esophageal reflux disease without esophagitis; G89.29 Other chronic pain; F41.9 Anxiety disorder, unspecified; F32.9 Major depressive disorder, single episode, unspecified; Z95.818 Presence of other cardiac implants and grafts; Z98.890 Other specified postprocedural states; Z79.899 Other long term (current) drug therapy
CPT/HCPCS: 36415; 71046; 80053; 82948; 83605; 85025; 85651; 86140; 87040; 99284

== ENCOUNTER 2019-01-23 12:37 | Inpatient (IN) | payer MEDICARE, MEDICAID ==
[2019-01-22 14:47] LABS: BASOPHILS # (AUTO) 0.1 X10'3 (0-0.2); BASOPHILS % (AUTO) 0.9 % (0-1); EOSINOPHILS # (AUTO) 0.2 X10'3 (0-0.9); EOSINOPHILS % (AUTO) 2.4 % (0-6); LYMPHOCYTES # (AUTO) 2.4 X10'3 (1.1-4.8); LYMPHOCYTES % (AUTO) 32.8 % (21-51); MEAN CORPUSCULAR HEMOGLOBIN 31.2 PG (27.0-31.0); MEAN CORPUSCULAR VOLUME 91.6 FL (78-98); MONOCYTES # (AUTO) 0.6 X10'3 (0-0.9); MONOCYTES % (AUTO) 8.2 % (2-12); NEUTROPHILS # (AUTO) 4.1 X10'3 (1.8-7.7); NEUTROPHILS % (AUTO) 55.7 % (42-75); PRE OP HEMATOCRIT 41.3 % (42.0-52.0); PRE OP HEMOGLOBIN 14.1 g/dL (14.0-17.9); PRE OP PLATELET COUNT 240 X10'3 (140-440); RED BLOOD COUNT 4.51 X10'6 (4.70-6.10); RED CELL DISTRIBUTION WIDTH 15.1 % (11.5-14.5)
[2019-01-22 14:53] LABS: HEMOGLOBIN A1C 5.9 % (4.5-6.2)
[2019-01-22 14:58] LABS: PRE OP PROTIME 10.2 SECONDS (9.0-12.0)
[2019-01-22 15:26] LABS: ALBUMIN 3.8 G/DL (3.4-5.0); ALBUMIN/GLOBULIN RATIO 0.8 (1.1-1.5); ALKALINE PHOSPHATASE 102 IU/L (46-116); BLOOD UREA NITROGEN 9 MG/DL (7-18); BUN/CREATININE RATIO 9.3 (5.4-32.0); CALCIUM 9.3 MG/DL (8.5-10.1); CHLORIDE 101 MMOL/L (99-107); CREATININE 0.97 MG/DL (0.60-1.10); PRE OP ANION GAP 13 (8-16); PRE OP BILIRUB, TOTAL 0.2 MG/DL (0.0-1.0); PRE OP GLUCOSE 116 MG/DL (70-104); PRE OP POTASSIUM 3.7 MMOL/L (3.4-5.1); PRE OP SODIUM 138 MMOL/L (135-145); TOTAL CARBON DIOXIDE 24.5 MMOL/L (24-32); TOTAL PROTEIN 8.5 G/DL (6.4-8.2); eGFR 82 ML/MIN
[2019-01-22 15:30] LABS: PRE OP ALT 124 U/L (30-65); PRE OP AST 111 U/L (10-37)
[2019-01-23] VITALS (14 sets, daily range): BP systolic 108–147; BP diastolic 69–97
[~2019-01-23] VITALS: Ht 182.9 cm; Wt 112.9 kg
[~2019-01-23 12:37] MED LIST changes: +ASPI-1265 PO; +CEPH-572 PO; +DOCUMENT DATE & TIME OF BETA-BLOCKER PO ONE; -GABA-532 PO; -HYDR-3972 PO; -HYDR-3973 PO; +HYDR12.55 PO; -INSU100C10 SQ; -INSU100I31 SQ; +LANTUS SQ; +NIFE90TA37 PO; +NOVLG SQ; -OXYC-580 PO; -OXYC5CAP19 PO; +SULF1TAB49 PO; +cefazolin/dext.iso 2gm/50ml 50 ML IV ONE; +famotidine 20mg tablet PO ONE; +ringers solution, lacted 1,000 ML IV SCH; +tranexamic acid inj. 1,000 MG in normal saline 100 ML IV ONE; +vancomycin inj 1,500 MG in normal saline 300ml IV soln IV ONE
[2019-01-23] MEDS ORDERED: ketorolac trometh. 30mg/ml inj. ONE (16:07)
[2019-01-23] MEDS ORDERED: ROPIVAcaine 0.5% (5mg/ml) 30ml vial ONE (16:07)
[2019-01-23] MEDS ORDERED: midazolam 2 mg/2 ml injection ONE ×2 (16:50→17:03)
[2019-01-23] MEDS ORDERED: sevoflurane 250ml liquid IH ONE (17:02)
[2019-01-23] MEDS ORDERED: fentaNYL /PF 50mcg/ml 5ml ampule ONE (17:04)
[2019-01-23] MEDS ORDERED: propofol inj 20 ML IV ONE (17:04)
[2019-01-23] MEDS ORDERED: rocuronium 10mg/ml inj IV ONE (17:04)
[2019-01-23] MEDS ORDERED: ketamine 50mg/5ml syringe ONE (17:26)
[2019-01-23] MEDS ORDERED: proCHLORperazine 10 MG/2 ml inj IV PRN (18:00)
[2019-01-23] MEDS ORDERED: meperidine/PF 25mg/ml syringe IV PRN ×3 (18:00)
[2019-01-23] MEDS ORDERED: ringers solution, lacted 1,000 ML IV SCH (18:00)
[2019-01-23] MEDS ORDERED: ondansetron/PF 4mg/2ml inj IV PRN ×2 (18:00→19:20)
[2019-01-23] MEDS ORDERED: morphine 4 MG/ML inj SYRINge IV PRN ×2 (18:00)
[2019-01-23] MEDS ORDERED: vancomycin 1,000mg inj ONE (18:29)
[2019-01-23] MEDS ORDERED: neostigmine methylsulfate 1 MG/ML 10ml vial ONE (18:38)
[2019-01-23] MEDS ORDERED: glycopyrrolate 0.2mg/ml inj ONE (18:38)
[2019-01-23] MEDS ORDERED: acetaminophen 1,000mg/100ml IV 100 ML IV ONE (18:39)
[2019-01-23 19:05] LABS: APPEARANCE,SYNOVIAL FLUID BLOODY; COLOR,SYNOVIAL FLUID OTHER; SYN RBC 13825 /CU MM (0); SYN WBC 2825 /CU MM (0-200)
[2019-01-23 19:16] LABS: SYNOVIAL LINING CELLS FEW
[2019-01-23] MEDS ORDERED: diphenhydrAMINE 25mg capsule PO PRN ×2 (19:20)
[2019-01-23] MEDS ORDERED: oxyCODONE IR 5mg (immed. release) tablet PO PRN (19:20)
[2019-01-23] MEDS ORDERED: cloNIDine 0.1 mg tablet PO PRN (19:20)
[2019-01-23] MEDS ORDERED: HYDROmorphone inj. 0.5 MG/0.5 ML DISP.SYRIN IV PRN (19:20)
[2019-01-23] MEDS ORDERED: bisacodyl 10mg suppository rectal RC PRN (19:20)
[2019-01-23] MEDS ORDERED: magnesium hydroxide 30ml (MOM) UD suspension PO PRN (19:20)
[2019-01-23] MEDS ORDERED: acetaminophen 325mg tablet PO PRN (19:20)
--- NOTE | 2019-01-23 19:20 | NUR ---
Received from OR via BED, accompanied by Anesthesiologist DR SALINAS and report given by Anesthesiolgist. PATIENT A&OX4, DENIES PAIN, V/S WNL, NEUROVASCULAR CHECKS INTACT, 20G PIV RUE, SCD ON, DRESSING TO LEFT SHOULDER W/ SLING CDI
--- NOTE | 2019-01-23 19:38 | NUR ---
Patient in room PAS IN 900. I have received report from RU Goodrich and had the opportunity to ask questions and assume patient care.
[2019-01-23] MEDS ORDERED: sulfamethoxazole/trimethoprim DS (800/160mg) tablet PO SCH (20:00)
[2019-01-23] MEDS ORDERED: vancomycin/NS 1 GM ADD-VANTAGE 250 ML IV SCH (20:00)
--- NOTE | 2019-01-23 20:00 | NUR ---
PATIENT A&OX4, STATES PAIN WELL TOLERATED, V/S WNL, NEUROVASCULAR CHECKS INTACT, 20G PIV RUE, SCD ON, DRESSING TO LEFT SHOULDER W/ SLING CDI. PATIENT TAKEN TO 4011B WITH ALL BELONGINGS AND HOOKED UP TO MONITORS IN ROOM AND REPORT GIVEN TO RN WHO HAS TAKEN OVER PATIENT CARE
[2019-01-23] MEDS: HYDROmorphone 1 mg/ml syringe IV PRN (20:30)
[2019-01-23] MEDS: potassium cl 20mEq in 1/2 NS 1,000 ML IV SCH (20:35)
[2019-01-23] MEDS: sennosides 8.6mg tablet PO SCH (20:36)
[2019-01-23] MEDS: acetaminophen 325mg tablet PO SCH (20:36)
[2019-01-23] MEDS: celeCOXIB 100mg capsule PO SCH (20:36)
[2019-01-23] MEDS: lisinopril 20mg tablet PO SCH (20:36)
[2019-01-23] MEDS: labetalol 100mg tablet PO SCH (20:54)
[2019-01-23] MEDS ORDERED: INSULIN ASPART SQ SCH (21:00)
[2019-01-23] MEDS: oxyCODONE IR 5mg (immed. release) tablet PO PRN (21:36)
[2019-01-23] MEDS: ceFAZolin 1GM/D5W- ADD-VANTAGE 50 ML IV SCH (23:33)
[2019-01-24] VITALS (10 sets, daily range): BP systolic 84–139; BP diastolic 36–75
[2019-01-24] MEDS ORDERED: cephalexin 500mg capsule PO SCH
[2019-01-24] MEDS: HYDROmorphone 1 mg/ml syringe IV PRN ×4 (00:33→21:16)
[2019-01-24] MEDS: acetaminophen 325mg tablet PO SCH ×4 (02:14→20:11)
--- NOTE | 2019-01-24 03:09 | NUR ---
Pt. shoulder incision was bleeding ,dressing reinforce twice.Pt. noncompliant ,moving his shoulder up and down.
[2019-01-24] MEDS: potassium cl 20mEq in 1/2 NS 1,000 ML IV SCH ×3 (05:01→20:10)
--- NOTE | 2019-01-24 05:34 | NUR ---
pt. BP 84/44,HR 78 ,NS given 250 ml bolus per Nursing protocol.We will continue with pt. care.
[2019-01-24 06:13] LABS: BASOPHILS % (AUTO) 0.8 % (0-1); EOSINOPHILS # (AUTO) 0.4 X10'3 (0-0.9); EOSINOPHILS % (AUTO) 5.7 % (0-6); HEMATOCRIT 29.7 % (42.0-52.0); HEMOGLOBIN 10.2 g/dl (14.0-17.9); LYMPHOCYTES # (AUTO) 1.5 X10'3 (1.1-4.8); LYMPHOCYTES % (AUTO) 23.5 % (21-51); MEAN CORPUSCULAR HEMOGLOBIN 31.6 PG (27.0-31.0); MEAN CORPUSCULAR HGB CONC 34.1 g/dL (33.0-36.5); MEAN CORPUSCULAR VOLUME 92.5 FL (78-98); MEAN PLATELET VOLUME 7.4 FL (7.4-10.4); MONOCYTES # (AUTO) 0.4 X10'3 (0-0.9); PLATELET COUNT 182 X10'3 (140-440); RED BLOOD COUNT 3.21 X10'6 (4.70-6.10); WHITE BLOOD COUNT 6.3 X10'3 (4.5-11.0)
[2019-01-24 06:24] LABS: ANION GAP 8 (8-16); CHLORIDE 104 MMOL/L (99-107); POTASSIUM 3.9 MMOL/L (3.5-5.1); SODIUM 137 MMOL/L (135-145); TOTAL CARBON DIOXIDE 24.7 MMOL/L (24-32)
--- NOTE | 2019-01-24 06:30 | NUR ---
I have received patient report from Rosa VENCES
--- NOTE | 2019-01-24 06:41 | NUR ---
Problems reprioritized. Patient report given, questions answered & plan of care reviewed with RU Clemens.
[2019-01-24] MEDS: pantoprazole 40mg Tablet.DR PO SCH (06:49)
[2019-01-24] MEDS: oxyCODONE IR 5mg (immed. release) tablet PO PRN ×3 (06:49→17:28)
[2019-01-24] MEDS ORDERED: dextrose 50%-water 50ml dispensing syringe IV PRN ×2 (07:25)
[2019-01-24] MEDS ORDERED: dextrose ORAL solution 15 GM/59 ML bottle PO PRN ×2 (07:25)
[2019-01-24] MEDS ORDERED: insulin Lispro (HumaLOG) vial - multi-dose SQ SCH (07:25)
[2019-01-24] MEDS ORDERED: glucagon, human recombinant 1mg kit SUBCUT PRN (07:25)
[2019-01-24] MEDS: ceFAZolin 1GM/D5W- ADD-VANTAGE 50 ML IV SCH (07:55)
[2019-01-24] MEDS: aspirin 325mg tablet PO SCH (07:57)
[2019-01-24] MEDS: celeCOXIB 100mg capsule PO SCH ×2 (07:57→20:11)
[2019-01-24] MEDS: lisinopril 20mg tablet PO SCH ×2 (08:00→20:11)
[2019-01-24] MEDS: NIFEdipine XL 30mg tablet PO SCH (08:00)
[2019-01-24] MEDS: metoprolol succinate 25mg (24-HOUR) SR. Tablet PO SCH (08:00)
[2019-01-24] MEDS: labetalol 100mg tablet PO SCH ×3 (08:00→20:11)
[2019-01-24] MEDS: HYDROchlorothiazide 12.5mg capsule PO SCH (08:00)
[2019-01-24] MEDS ORDERED: aspirin 81mg tab.chew PO SCH (08:00)
[2019-01-24] MEDS: insulin glargine (Lantus) pen - multi-dose SQ SCH (08:05)
[2019-01-24] MEDS: levoFLOXACIN 750MG TABLET PO SCH (11:08)
[2019-01-24] MEDS: rifampin 300mg capsule PO SCH ×2 (11:08→20:11)
--- NOTE | 2019-01-24 12:25 | NUR ---
PATIENT CHECKING HIS OWN BLOOD SUGARS, HE SAID IT WAS 106, HE HAS HIS OWN METER AT BEDSIDE
--- NOTE | 2019-01-24 18:10 | NUR ---
Patient in room ORTHO 4011. I have received report from Jayleen VENCES and had the opportunity to ask questions and assume patient care.
--- NOTE | 2019-01-24 18:10 | NUR ---
Patient in room ORTHO 4011. I have received report from RU Clemens and had the opportunity to ask questions and assume patient care.
--- NOTE | 2019-01-24 18:29 | NUR ---
I gave patient report to Frances VENCES
[2019-01-24] MEDS: sennosides 8.6mg tablet PO SCH (20:11)
[2019-01-25] MEDS ORDERED: ceFAZolin 1GM/D5W- ADD-VANTAGE 50 ML IV SCH
[2019-01-25] MEDS: acetaminophen 325mg tablet PO SCH ×3 (02:00→14:14)
[2019-01-25] MEDS: potassium cl 20mEq in 1/2 NS 1,000 ML IV SCH ×2 (03:19→18:49)
[2019-01-25] MEDS: oxyCODONE IR 5mg (immed. release) tablet PO PRN ×3 (03:41→18:47)
[2019-01-25 06:10] VITALS: BP 122/60
--- NOTE | 2019-01-25 06:27 | NUR ---
Problems reprioritized. Patient report given, questions answered & plan of care reviewed with Jayleen VENCES.
[2019-01-25 06:29] LABS: BASOPHILS % (AUTO) 0.8 % (0-1); EOSINOPHILS # (AUTO) 0.7 X10'3 (0-0.9); HEMATOCRIT 31.2 % (42.0-52.0); HEMOGLOBIN 10.7 g/dl (14.0-17.9); LYMPHOCYTES # (AUTO) 1.5 X10'3 (1.1-4.8); LYMPHOCYTES % (AUTO) 30.4 % (21-51); MEAN CORPUSCULAR HEMOGLOBIN 31.9 PG (27.0-31.0); MEAN CORPUSCULAR HGB CONC 34.2 g/dL (33.0-36.5); MEAN CORPUSCULAR VOLUME 93.3 FL (78-98); MEAN PLATELET VOLUME 7.3 FL (7.4-10.4); MONOCYTES # (AUTO) 0.5 X10'3 (0-0.9); MONOCYTES % (AUTO) 9.4 % (2-12); NEUTROPHILS # (AUTO) 2.3 X10'3 (1.8-7.7); NEUTROPHILS % (AUTO) 46.4 % (42-75); PLATELET COUNT 181 X10'3 (140-440); RED BLOOD COUNT 3.34 X10'6 (4.70-6.10); RED CELL DISTRIBUTION WIDTH 14.5 % (11.5-14.5)
--- NOTE | 2019-01-25 06:30 | NUR ---
Patient in room ORTHO 4011. I have received report from Rosa and Mary RNs and had the opportunity to ask questions and assume patient care.
[2019-01-25] MEDS: metoprolol succinate 25mg (24-HOUR) SR. Tablet PO SCH (08:33)
[2019-01-25] MEDS: NIFEdipine XL 30mg tablet PO SCH (08:34)
[2019-01-25] MEDS: celeCOXIB 100mg capsule PO SCH ×2 (08:35→20:37)
[2019-01-25] MEDS: lisinopril 20mg tablet PO SCH ×2 (08:36→20:38)
[2019-01-25] MEDS: HYDROchlorothiazide 12.5mg capsule PO SCH (08:37)
[2019-01-25] MEDS: labetalol 100mg tablet PO SCH ×3 (08:38→20:37)
[2019-01-25] MEDS: rifampin 300mg capsule PO SCH ×2 (08:38→20:51)
[2019-01-25] MEDS: aspirin 325mg tablet PO SCH (08:38)
[2019-01-25] MEDS: pantoprazole 40mg Tablet.DR PO SCH (08:39)
[2019-01-25] MEDS: HYDROmorphone 1 mg/ml syringe IV PRN ×3 (08:41→23:26)
[2019-01-25] MEDS: insulin glargine (Lantus) pen - multi-dose SQ SCH (08:47)
[2019-01-25 10:00] VITALS: BP 123/67
[2019-01-25] MEDS: levoFLOXACIN 750MG TABLET PO SCH (11:50)
[2019-01-25 18:00] VITALS: BP 101/60
--- NOTE | 2019-01-25 18:10 | NUR ---
Patient in room ORTHO 4011. I have received report from RU Clemens and had the opportunity to ask questions and assume patient care.
--- NOTE | 2019-01-25 18:46 | NUR ---
Patient report given to Rosa VENCES
[2019-01-25] MEDS ORDERED: acetaminophen 325mg tablet PO PRN (19:20)
[2019-01-25 20:37] VITALS: BP 168/86
[2019-01-25] MEDS: sennosides 8.6mg tablet PO SCH (20:43)
[2019-01-25 22:00] VITALS: BP 125/65
[2019-01-26 05:00] VITALS: BP 145/55
[2019-01-26] MEDS: oxyCODONE IR 5mg (immed. release) tablet PO PRN ×4 (05:36→19:58)
--- NOTE | 2019-01-26 06:20 | NUR ---
Problems reprioritized. Patient report given, questions answered & plan of care reviewed with RU Tirado.
[2019-01-26 06:45] LABS: BASOPHILS % (AUTO) 0.8 % (0-1); EOSINOPHILS # (AUTO) 0.8 X10'3 (0-0.9); EOSINOPHILS % (AUTO) 12.5 % (0-6); HEMOGLOBIN 11.1 g/dl (14.0-17.9); LYMPHOCYTES # (AUTO) 1.6 X10'3 (1.1-4.8); LYMPHOCYTES % (AUTO) 26.5 % (21-51); MEAN CORPUSCULAR HEMOGLOBIN 31.3 PG (27.0-31.0); MEAN CORPUSCULAR HGB CONC 33.6 g/dL (33.0-36.5); MEAN CORPUSCULAR VOLUME 93.3 FL (78-98); MEAN PLATELET VOLUME 7.6 FL (7.4-10.4); MONOCYTES # (AUTO) 0.5 X10'3 (0-0.9); MONOCYTES % (AUTO) 8.9 % (2-12); NEUTROPHILS # (AUTO) 3.1 X10'3 (1.8-7.7); NEUTROPHILS % (AUTO) 51.3 % (42-75); PLATELET COUNT 200 X10'3 (140-440); RED BLOOD COUNT 3.54 X10'6 (4.70-6.10); RED CELL DISTRIBUTION WIDTH 14.9 % (11.5-14.5)
--- NOTE | 2019-01-26 06:46 | NUR ---
Patient in room ORTHO 4011. I have received report from Rosa VENCES and had the opportunity to ask questions and assume patient care.
[2019-01-26] MEDS: lisinopril 20mg tablet PO SCH ×2 (07:42→20:16)
[2019-01-26] MEDS: pantoprazole 40mg Tablet.DR PO SCH (07:43)
[2019-01-26] MEDS: labetalol 100mg tablet PO SCH ×3 (07:43→20:16)
[2019-01-26] MEDS: aspirin 325mg tablet PO SCH (07:43)
[2019-01-26] MEDS: celeCOXIB 100mg capsule PO SCH ×2 (07:44→20:15)
[2019-01-26] MEDS: metoprolol succinate 25mg (24-HOUR) SR. Tablet PO SCH (07:44)
[2019-01-26] MEDS: HYDROchlorothiazide 12.5mg capsule PO SCH (07:44)
[2019-01-26] MEDS: NIFEdipine XL 30mg tablet PO SCH (07:44)
[2019-01-26] MEDS: insulin glargine (Lantus) pen - multi-dose SQ SCH (07:55)
[2019-01-26] MEDS: rifampin 300mg capsule PO SCH ×2 (08:33→20:15)
[2019-01-26] MEDS: HYDROmorphone 1 mg/ml syringe IV PRN ×2 (09:54→15:14)
[2019-01-26 10:00] VITALS: BP 127/63
[2019-01-26] MEDS: levoFLOXACIN 750MG TABLET PO SCH (10:30)
[2019-01-26 17:00] VITALS: BP 101/60
--- NOTE | 2019-01-26 18:11 | NUR ---
Patient in room ORTHO 4011. I have received report from Catarino VARGAS and Candida VENCES and had the opportunity to ask questions and assume patient care.
--- NOTE | 2019-01-26 18:20 | NUR ---
Report given to Tika VENCES
--- NOTE | 2019-01-26 18:42 | NUR ---
Student documentation: I have reviewed and agree with all interventions, assessments performed and documented by Catarino VERGARA. Student Medication Administration: For this medication-pass time frame, all medication were reviewed, dispensed, administered and documented per hospital policy by Catarino VERGARA. Report to Tori VENCES
[2019-01-26 20:00] VITALS: BP_SYST 127; BP_SYST 132; BP_DIAS 54; BP_DIAS 61
[2019-01-26] MEDS: lactobacillus rhamnosus 10,000 MMU CELLS/CAPSULE PO SCH (20:15)
[2019-01-26] MEDS: sennosides 8.6mg tablet PO SCH (20:15)
[2019-01-26 22:00] VITALS: BP 152/65
[2019-01-27] MEDS: HYDROmorphone 1 mg/ml syringe IV PRN ×2 (00:26→12:35)
--- NOTE | 2019-01-27 06:39 | NUR ---
Problems reprioritized. Patient report given, questions answered & plan of care reviewed with Candida VENCES.
[2019-01-27 06:42] VITALS: BP 137/53
[2019-01-27] MEDS: rifampin 300mg capsule PO SCH (09:22)
[2019-01-27] MEDS: celeCOXIB 100mg capsule PO SCH (09:22)
[2019-01-27] MEDS: aspirin 325mg tablet PO SCH (09:22)
[2019-01-27] MEDS: levoFLOXACIN 750MG TABLET PO SCH (09:22)
[2019-01-27] MEDS: HYDROchlorothiazide 12.5mg capsule PO SCH (09:22)
[2019-01-27] MEDS: lactobacillus rhamnosus 10,000 MMU CELLS/CAPSULE PO SCH (09:23)
[2019-01-27] MEDS: labetalol 100mg tablet PO SCH (09:24)
[2019-01-27] MEDS: pantoprazole 40mg Tablet.DR PO SCH (09:24)
[2019-01-27] MEDS: metoprolol succinate 25mg (24-HOUR) SR. Tablet PO SCH (09:24)
[2019-01-27] MEDS: lisinopril 20mg tablet PO SCH (09:25)
[2019-01-27] MEDS: oxyCODONE IR 5mg (immed. release) tablet PO PRN (09:28)
[2019-01-27] MEDS: NIFEdipine XL 30mg tablet PO SCH (09:29)
[2019-01-27] MEDS: insulin glargine (Lantus) pen - multi-dose SQ SCH (09:31)
[2019-01-27 10:00] VITALS: BP 145/70
[2019-01-27] MEDS ORDERED: LEVO750T46 PO (10:35)
[2019-01-27] MEDS ORDERED: RIFA300C4 PO (10:35)
--- NOTE | 2019-01-27 13:00 | NUR ---
PATIENT DISCHARGED, IV TAKEN OUT AND PAIN MEDS GIVEN PER REQUEST. RIDE TO PICK HIM UP.
== END 2019-01-27 12:45 | disposition home or self-care (01) | DRG 483 ==
LOC: PAS IN 12:37 → EDSTATUS 16:30 → ORTHO 4S 20:00 → UNDODISIN 01-27 12:10
PROVIDERS: ADMIT Orthopaedic Surgery; ATTEND Orthopaedic Surgery
PROC: 0RPK0JZ Removal of Synthetic Substitute from Left Shoulder Joint, Open Approach (ICD-10-PCS; 2019-01-23)
PROC: 0RRK0J6 Replacement of Left Shoulder Joint with Synthetic Substitute, Humeral Surface, Open Approach (ICD-10-PCS; principal; 2019-01-23 17:02)
DX: T84.028A Dislocation of other internal joint prosthesis, initial encounter (principal); D62 Acute posthemorrhagic anemia; Z96.612 Presence of left artificial shoulder joint; E11.9 Type 2 diabetes mellitus without complications; E78.5 Hyperlipidemia, unspecified; F32.9 Major depressive disorder, single episode, unspecified; F41.9 Anxiety disorder, unspecified; G89.29 Other chronic pain; Y83.1 Surgical operation with implant of artificial internal device as the cause of abnormal reaction of the patient, or of later complication, without mention of misadventure at the time of the procedure; M65.812 Other synovitis and tenosynovitis, left shoulder; Z96.653 Presence of artificial knee joint, bilateral; E66.01 Morbid (severe) obesity due to excess calories; I10 Essential (primary) hypertension; I25.10 Atherosclerotic heart disease of native coronary artery without angina pectoris; W18.39XA Other fall on same level, initial encounter; K21.9 Gastro-esophageal reflux disease without esophagitis; Z79.2 Long term (current) use of antibiotics; Z79.82 Long term (current) use of aspirin; Z89.201 Acquired absence of right upper limb, unspecified level; Z87.891 Personal history of nicotine dependence; Y92.89 Other specified places as the place of occurrence of the external cause; Y93.89 Activity, other specified; Y99.8 Other external cause status; Z86.73 Personal history of transient ischemic attack (TIA), and cerebral infarction without residual deficits; Z79.4 Long term (current) use of insulin; I25.2 Old myocardial infarction; Z95.5 Presence of coronary angioplasty implant and graft; Z68.33 Body mass index [BMI] 33.0-33.9, adult
CPT/HCPCS: 36415; 76937; 80051; 80053; 82948; 83036; 85025; 85610; 85730; 87070; 87075; 87081; 89051; 93005; 97116; 97161; A4565; A4618; A7000; C1776; G0378; J0131; J0690; J1170; J1815; J1885; J2250; J2704; J2710; J2795; J3010; J3370; J3480; J3490; J7120

== ENCOUNTER 2019-02-04 00:11 | Emergency (ER) | payer MEDICARE, MEDICAID ==
[~2019-02-04] VITALS: Ht 182.9 cm; Wt 111.4 kg
[~2019-02-04 00:11] MED LIST changes: -CEPH-572 PO; -DOCUMENT DATE & TIME OF BETA-BLOCKER PO ONE; +LEVO750T46 PO; +RIFA300C4 PO; -SULF1TAB49 PO; -cefazolin/dext.iso 2gm/50ml 50 ML IV ONE; -famotidine 20mg tablet PO ONE; -ringers solution, lacted 1,000 ML IV SCH; -tranexamic acid inj. 1,000 MG in normal saline 100 ML IV ONE; -vancomycin inj 1,500 MG in normal saline 300ml IV soln IV ONE
[2019-02-04] MEDS ORDERED: normal saline 1000ML IV soln IV ONE (01:05)
[2019-02-04] MEDS ORDERED: normal saline 1000ml 1,000 ML IV ONE (01:20)
[2019-02-04] MEDS ORDERED: proCHLORperazine 10 MG/2 ml inj IV ONE (01:20)
[2019-02-04] MEDS ORDERED: SUMAtriptan succ. 6 MG/0.5ml vial SQ ONE (01:20)
[2019-02-04] MEDS ORDERED: ketorolac tromethamine 15mg/ml inj. IV ONE (01:20)
--- NOTE | 2019-02-04 01:46 | NUR ---
LAB CALLED TO NOTIFY US OF A DELAY IN THE LABS SECONDARY TO EQUIPMENT PROBLEMS. AWARE
[2019-02-04 01:49] LABS: PARTIAL THROMBOPLASTIN TIME 28 SECONDS (22-32)
[2019-02-04 01:50] LABS: ALANINE AMINOTRANSFERASE 51 U/L (12-78); ALBUMIN 3.2 G/DL (3.4-5.0); ALBUMIN/GLOBULIN RATIO 0.8 (1.1-1.5); ALKALINE PHOSPHATASE 82 IU/L (46-116); ANION GAP 10 (8-16); ASPARTATE AMINO TRANSFERASE 45 U/L (10-37); BILIRUBIN,TOTAL 0.2 MG/DL (0.1-1.0); BLOOD UREA NITROGEN 10 MG/DL (7-18); BUN/CREATININE RATIO 9.6 (5.4-32.0); C-REACTIVE PROTEIN 1.46 MG/DL (0.0-0.5); CALCIUM 8.6 MG/DL (8.5-10.1); CHLORIDE 106 MMOL/L (99-107); CREATININE 1.04 MG/DL (0.60-1.10); GLUCOSE 103 MG/DL (70-104); MAGNESIUM 2.3 MG/DL (1.5-2.4); POTASSIUM 3.9 MMOL/L (3.5-5.1); SODIUM 142 MMOL/L (135-145); eGFR 75 ML/MIN
[2019-02-04 02:03] LABS: CLARITY,URINE CLEAR (Clear); COLOR,URINE YELLOW (Yellow); GLUCOSE, URINE NEGATIVE (Neg); KETONES,URINE NEGATIVE (Neg); LEUKOCYTE ESTERASE ,URINE NEGATIVE (Neg); NITRITES, URINE NEGATIVE (Neg); OCCULT BLOOD,URINE NEGATIVE (Neg); PH,URINE 6.5 (4.8-8.0); PROTEIN,URINE NEGATIVE (Neg); UA COLLECTION TYPE VOIDED; UROBILINOGEN,URINE 0.2 E.U/dL (0.2-1.0)
--- NOTE | 2019-02-04 02:33 | NUR ---
SET UP FOR BEDSIDE ULTRASOUND TO VIEW IF THERE IS A FLUID COLLECTION THAT CAN BE DRAINED. PT IS AGGITATED AND WANTING TO LEAVE. THE FEMALE AT BEDSIDE IS CONVINCING HIM TO STAY AND GET THIS TAKEN CARE OF. HE AGREES TO STAY FOR NOW. FLUID BOLUS CURRENTLY INFUSING. PT HAS LIMITED IV ACCESS AND WE ONLY HAVE A 22G IN PLACE.
[2019-02-04 02:46] LABS: BASOPHILS # (AUTO) 0.1 X10'3 (0-0.2); BASOPHILS % (AUTO) 1.1 % (0-1); EOSINOPHILS # (AUTO) 0.5 X10'3 (0-0.9); EOSINOPHILS % (AUTO) 8.1 % (0-6); HEMATOCRIT 32.6 % (42.0-52.0); HEMOGLOBIN 11.1 g/dl (14.0-17.9); LYMPHOCYTES # (AUTO) 2.5 X10'3 (1.1-4.8); LYMPHOCYTES % (AUTO) 38.2 % (21-51); MEAN CORPUSCULAR HEMOGLOBIN 31.2 PG (27.0-31.0); MEAN CORPUSCULAR HGB CONC 33.9 g/dL (33.0-36.5); MEAN CORPUSCULAR VOLUME 91.9 FL (78-98); MEAN PLATELET VOLUME 7.3 FL (7.4-10.4); MONOCYTES # (AUTO) 0.6 X10'3 (0-0.9); NEUTROPHILS # (AUTO) 2.8 X10'3 (1.8-7.7); NEUTROPHILS % (AUTO) 43.6 % (42-75); PLATELET COUNT 296 X10'3 (140-440); RED BLOOD COUNT 3.55 X10'6 (4.70-6.10); RED CELL DISTRIBUTION WIDTH 14.7 % (11.5-14.5); WHITE BLOOD COUNT 6.5 X10'3 (4.5-11.0)
[2019-02-04] MEDS ORDERED: morphine 4 MG/ML inj SYRINge IV ONE (02:50)
--- NOTE | 2019-02-04 02:50 | NUR ---
APPROX 30CC OF FLUID DRAINED BY MD FROM JUST BELOW SURGICAL INCISION. FLUID IS CLEAR WITH SLIGHT BLOOD TINGE. PT TOLERATED PROCEDURE WELL AND EXPRESSED RELIEF FROM THE PRESSURE.
[2019-02-04 03:25] VITALS: BP 158/90
== END 2019-02-04 03:20 | disposition home or self-care (01) ==
LOC: ER 00:11
DX: M96.843 Postprocedural seroma of a musculoskeletal structure following other procedure (principal); I25.10 Atherosclerotic heart disease of native coronary artery without angina pectoris; E78.00 Pure hypercholesterolemia, unspecified; I10 Essential (primary) hypertension; I25.2 Old myocardial infarction; K21.9 Gastro-esophageal reflux disease without esophagitis; G89.29 Other chronic pain; Z86.73 Personal history of transient ischemic attack (TIA), and cerebral infarction without residual deficits; Z95.5 Presence of coronary angioplasty implant and graft; Z98.890 Other specified postprocedural states; Z79.82 Long term (current) use of aspirin; Z79.899 Other long term (current) drug therapy; Z79.4 Long term (current) use of insulin
CPT/HCPCS: 10160; 36415; 71045; 80053; 81003; 83605; 83735; 84145; 85025; 85610; 85651; 85730; 86140; 87040; 93005; 96372; 96374; 96375; 99284; J1885; J2270; J7030; J3030

== ENCOUNTER 2019-11-17 16:41 | Inpatient (IN) | payer MEDICAID, MEDICARE, OTHER ==
[~2019-11-17] VITALS: Ht 180.3 cm; Wt 115.0 kg
[~2019-11-17 16:41] MED LIST changes: -NIFE90TA37 PO; +NIFE90TA61 PO
[2019-11-17] MEDS ORDERED: normal saline 1000ML IV soln IVB ONE (16:55)
[2019-11-17 17:29] LABS: CLARITY,URINE CLEAR (Clear); GLUCOSE, URINE NEGATIVE (Neg); KETONES,URINE NEGATIVE (Neg); LEUKOCYTE ESTERASE ,URINE NEGATIVE (Neg); NITRITES, URINE NEGATIVE (Neg); OCCULT BLOOD,URINE NEGATIVE (Neg); PROTEIN,URINE NEGATIVE (Neg); UROBILINOGEN,URINE 0.2 E.U/dL (0.2-1.0)
[2019-11-17 17:32] LABS: UA COLLECTION TYPE VOIDED
[2019-11-17 17:33] LABS: COLOR,URINE COLORLESS (Yellow)
[2019-11-17 17:35] LABS: URINE AMPHETAMINE SCREEN NEGATIVE (Neg); URINE BARBITUATE SCREEN NEGATIVE (Neg); URINE BENZODIAZEPINES SCREEN NEGATIVE (Neg); URINE CANNABINOID SCREEN NEGATIVE (Neg); URINE COCAINE SCREEN NEGATIVE (Neg); URINE METHADONE SCREEN NEGATIVE (Neg); URINE OPIATE SCREEN NEGATIVE (Neg); URINE PHENCYCLIDINE SCREEN NEGATIVE (Neg)
[2019-11-17 17:45] LABS: BASOPHILS # (AUTO) 0.1 X10'3 (0-0.2); BASOPHILS % (AUTO) 0.6 % (0-1); EOSINOPHILS # (AUTO) 0.1 X10'3 (0-0.9); EOSINOPHILS % (AUTO) 1.7 % (0-6); HEMATOCRIT 36.9 % (42.0-52.0); HEMOGLOBIN 12.2 g/dl (14.0-17.9); LYMPHOCYTES # (AUTO) 1.5 X10'3 (1.1-4.8); LYMPHOCYTES % (AUTO) 18.2 % (21-51); MEAN CORPUSCULAR HEMOGLOBIN 28.1 PG (27.0-31.0); MEAN CORPUSCULAR HGB CONC 33.2 g/dL (33.0-36.5); MEAN CORPUSCULAR VOLUME 84.6 FL (78-98); MEAN PLATELET VOLUME 7.9 FL (7.4-10.4); MONOCYTES # (AUTO) 0.5 X10'3 (0-0.9); MONOCYTES % (AUTO) 5.6 % (2-12); NEUTROPHILS # (AUTO) 6.1 X10'3 (1.8-7.7); NEUTROPHILS % (AUTO) 73.9 % (42-75); PLATELET COUNT 197 X10'3 (140-440); RED BLOOD COUNT 4.36 X10'6 (4.70-6.10); RED CELL DISTRIBUTION WIDTH 15.8 % (11.5-14.5); WHITE BLOOD COUNT 8.3 X10'3 (4.5-11.0)
[2019-11-17 18:01] LABS: ALANINE AMINOTRANSFERASE 26 U/L (12-78); ALBUMIN 4.1 G/DL (3.4-5.0); ALBUMIN/GLOBULIN RATIO 1.2 (1.1-1.5); ALKALINE PHOSPHATASE 58 IU/L (46-116); ANION GAP 8 (8-16); ASPARTATE AMINO TRANSFERASE 26 U/L (10-37); BILIRUBIN,TOTAL 0.4 MG/DL (0.1-1.0); BLOOD UREA NITROGEN 18 MG/DL (7-18); BUN/CREATININE RATIO 16.7 (5.4-32.0); CALCIUM 9.4 MG/DL (8.5-10.1); CHLORIDE 106 MMOL/L (99-107); CREATININE 1.08 MG/DL (0.60-1.10); GLUCOSE 100 MG/DL (70-104); SODIUM 138 MMOL/L (135-145); TOTAL CARBON DIOXIDE 23.7 MMOL/L (24-32); TOTAL PROTEIN 7.6 G/DL (6.4-8.2); eGFR 72 ML/MIN
[2019-11-17 18:04] LABS: ETHANOL < 0.010 GM/DL (0.0-0.010); TROPONIN I < 0.04 NG/ML (0.0-0.05)
[2019-11-17] MEDS ORDERED: acetaminophen 325mg tablet PO ONE (18:45)
[2019-11-17] MEDS ORDERED: ALEN70TA60 PO (19:56)
[2019-11-17] MEDS ORDERED: AMLO2.5T2 PO (19:57)
[2019-11-17] MEDS ORDERED: BUSP10TA11 PO (19:58)
[2019-11-17] MEDS ORDERED: CLOP75TA35 PO (19:59)
[2019-11-17] MEDS ORDERED: MELO-102 PO (20:00)
[2019-11-17] MEDS ORDERED: METF500T PO (20:01)
[2019-11-17] MEDS ORDERED: PIOG15TA8 PO (20:02)
[2019-11-17] MEDS ORDERED: SIMV-42 PO (20:03)
[2019-11-17] MEDS ORDERED: PRAZ2CAP2 PO (20:03)
[2019-11-17] MEDS ORDERED: insulin Lispro (HumaLOG) vial - multi-dose SQ SCH (20:15)
[2019-11-17] MEDS ORDERED: dextrose 50%-water 50ml dispensing syringe IV PRN ×2 (20:15)
[2019-11-17] MEDS ORDERED: acetaminophen 325mg tablet PO PRN ×2 (20:15)
[2019-11-17] MEDS ORDERED: magnesium hydroxide 30ml (MOM) UD suspension PO PRN (20:15)
[2019-11-17] MEDS ORDERED: mag hydrox/Alum hydrox/simeth 30ml oral suspension PO PRN (20:15)
[2019-11-17] MEDS ORDERED: morphine 2 MG/ML inj. syringe IV PRN ×2 (20:15)
[2019-11-17] MEDS ORDERED: MESSAGE TO PHARMACY PO ONE (20:15)
[2019-11-17] MEDS ORDERED: glucagon, human recombinant 1mg kit SUBCUT PRN (20:15)
[2019-11-17] MEDS ORDERED: ondansetron/PF 4mg/2ml inj IV PRN (20:15)
[2019-11-17] MEDS ORDERED: dextrose ORAL solution 15 GM/59 ML bottle PO PRN ×2 (20:15)
[2019-11-17 20:36] LABS: HEMOGLOBIN A1C 6.2 % (4.5-6.2)
[2019-11-17] MEDS: insulin glargine (Lantus) pen - multi-dose SQ SCH (21:00)
--- NOTE | 2019-11-17 21:30 | NUR ---
Patient arrived on unit with guard. MRSA swab collected, skin check performed vital signs collected.
[2019-11-17 22:04] VITALS: BP 154/84
[2019-11-17] MEDS: HYDROcodone/acetaminophen 10/325mg tab PO PRN (22:49)
[2019-11-18] VITALS (9 sets, daily range): BP systolic 103–136; BP diastolic 58–79
[2019-11-18] MEDS: atorvastatin 10mg tablet PO SCH ×2 (00:54→22:22)
[2019-11-18] MEDS: prazosin 1mg capsule PO SCH ×2 (00:54→22:21)
--- NOTE | 2019-11-18 06:27 | NUR ---
Problems reprioritized. Patient report given, questions answered & plan of care reviewed with RU CANALES.
[2019-11-18 06:34] LABS: BASOPHILS % (AUTO) 0.9 % (0-1); EOSINOPHILS # (AUTO) 0.2 X10'3 (0-0.9); EOSINOPHILS % (AUTO) 3.5 % (0-6); HEMOGLOBIN 11.4 g/dl (14.0-17.9); LYMPHOCYTES # (AUTO) 2.1 X10'3 (1.1-4.8); LYMPHOCYTES % (AUTO) 37.6 % (21-51); MEAN CORPUSCULAR HEMOGLOBIN 28.8 PG (27.0-31.0); MEAN CORPUSCULAR HGB CONC 33.5 g/dL (33.0-36.5); MONOCYTES # (AUTO) 0.4 X10'3 (0-0.9); MONOCYTES % (AUTO) 8.1 % (2-12); NEUTROPHILS # (AUTO) 2.7 X10'3 (1.8-7.7); NEUTROPHILS % (AUTO) 49.9 % (42-75); PLATELET COUNT 162 X10'3 (140-440); RED BLOOD COUNT 3.95 X10'6 (4.70-6.10); RED CELL DISTRIBUTION WIDTH 15.6 % (11.5-14.5); WHITE BLOOD COUNT 5.5 X10'3 (4.5-11.0)
--- NOTE | 2019-11-18 06:40 | NUR ---
Patient in room PCU 3011. I have received report from Ana VENCES and had the opportunity to ask questions and assume patient care.
[2019-11-18 06:54] LABS: ALBUMIN 3.4 G/DL (3.4-5.0); ANION GAP 9 (8-16); BLOOD UREA NITROGEN 18 MG/DL (7-18); BUN/CREATININE RATIO 16.8 (5.4-32.0); CHLORIDE 107 MMOL/L (99-107); CREATININE 1.07 MG/DL (0.60-1.10); GLUCOSE 92 MG/DL (70-104); POTASSIUM 3.9 MMOL/L (3.5-5.1); SODIUM 142 MMOL/L (135-145); TOTAL CARBON DIOXIDE 26.2 MMOL/L (24-32); eGFR 73 ML/MIN
[2019-11-18] MEDS: MELOXICAM 15 MG PO SCH (08:00)
[2019-11-18] MEDS: pantoprazole 40mg Tablet.DR PO SCH (08:31)
[2019-11-18] MEDS: labetalol 100mg tablet PO SCH ×3 (08:31→22:20)
[2019-11-18] MEDS: clopidogrel 75mg tablet PO SCH (08:31)
[2019-11-18] MEDS: aspirin 81mg tab.chew PO SCH (08:32)
[2019-11-18] MEDS: busPIRone 5mg tablet PO SCH ×2 (08:32→22:21)
[2019-11-18] MEDS: amLODIPine 5mg tablet PO SCH (08:32)
[2019-11-18] MEDS: lisinopril 20mg tablet PO SCH ×2 (08:33→22:21)
[2019-11-18] MEDS: HYDROcodone/acetaminophen 5mg/325mg tablet PO PRN ×2 (10:59→15:17)
--- NOTE | 2019-11-18 13:48 | NUR ---
paged Dr. Landis. Kishor Acosta. [phone]. Patient is inmate. Meloxicam is not available. Can we DC per pharmacy? Chet [phone]
--- NOTE | 2019-11-18 18:29 | NUR ---
Problems reprioritized. Patient report given, questions answered & plan of care reviewed with Debora VENCES.
[2019-11-18] MEDS: insulin glargine (Lantus) pen - multi-dose SQ SCH (21:00)
--- NOTE | 2019-11-18 22:30 | NUR ---
Patient's 24hr tele monitor is up. Patient has been running SR. Tele monitor removed.
[2019-11-19] VITALS (7 sets, daily range): BP systolic 104–127; BP diastolic 40–64
[2019-11-19] MEDS: HYDROcodone/acetaminophen 5mg/325mg tablet PO PRN (02:11)
[2019-11-19 06:08] LABS: BASOPHILS % (AUTO) 0.8 % (0-1); EOSINOPHILS # (AUTO) 0.2 X10'3 (0-0.9); EOSINOPHILS % (AUTO) 4.9 % (0-6); HEMATOCRIT 34.7 % (42.0-52.0); HEMOGLOBIN 11.5 g/dl (14.0-17.9); LYMPHOCYTES % (AUTO) 38.1 % (21-51); MEAN CORPUSCULAR HEMOGLOBIN 28.4 PG (27.0-31.0); MEAN CORPUSCULAR HGB CONC 33.3 g/dL (33.0-36.5); MEAN CORPUSCULAR VOLUME 85.4 FL (78-98); MONOCYTES # (AUTO) 0.5 X10'3 (0-0.9); MONOCYTES % (AUTO) 9.2 % (2-12); NEUTROPHILS # (AUTO) 2.4 X10'3 (1.8-7.7); PLATELET COUNT 168 X10'3 (140-440); RED BLOOD COUNT 4.06 X10'6 (4.70-6.10); RED CELL DISTRIBUTION WIDTH 15.6 % (11.5-14.5); WHITE BLOOD COUNT 5.1 X10'3 (4.5-11.0)
--- NOTE | 2019-11-19 06:18 | NUR ---
Problems reprioritized. Patient report given, questions answered & plan of care reviewed with Elidia Mahajan RN.
--- NOTE | 2019-11-19 06:19 | NUR ---
Patient in room PCU 3011. I have received report from RU Cazares and had the opportunity to ask questions and assume patient care. Pt sleeping comfortably, guard at bedside.
[2019-11-19 06:22] LABS: ALBUMIN 3.5 G/DL (3.4-5.0); ANION GAP 8 (8-16); BLOOD UREA NITROGEN 18 MG/DL (7-18); BUN/CREATININE RATIO 15.8 (5.4-32.0); CALCIUM 8.9 MG/DL (8.5-10.1); CHLORIDE 107 MMOL/L (99-107); CREATININE 1.14 MG/DL (0.60-1.10); GLUCOSE 89 MG/DL (70-104); POTASSIUM 4.3 MMOL/L (3.5-5.1); SODIUM 141 MMOL/L (135-145); TOTAL CARBON DIOXIDE 26.3 MMOL/L (24-32); eGFR 67 ML/MIN
[2019-11-19] MEDS: pantoprazole 40mg Tablet.DR PO SCH (07:21)
[2019-11-19] MEDS: HYDROcodone/acetaminophen 10/325mg tab PO PRN ×3 (07:22→22:53)
[2019-11-19] MEDS: aspirin 81mg tab.chew PO SCH (07:23)
[2019-11-19] MEDS: clopidogrel 75mg tablet PO SCH (07:23)
[2019-11-19] MEDS: lisinopril 20mg tablet PO SCH ×2 (07:23→20:42)
[2019-11-19] MEDS: amLODIPine 5mg tablet PO SCH (07:24)
[2019-11-19] MEDS: labetalol 100mg tablet PO SCH ×3 (07:24→20:41)
[2019-11-19] MEDS: busPIRone 5mg tablet PO SCH ×2 (07:24→20:42)
[2019-11-19] MEDS: MELOXICAM 15 MG PO SCH (08:00)
--- NOTE | 2019-11-19 15:49 | NUR ---
Paged Dr Patino " PAGER ID: [phone] MESSAGE: [phone] [address] [id number] MARY CHRISTIE patient ambulated 500 FT with PT. Spoke with studio technician, the radiologist dictated the report and it should be uploaded. Verbalized that the report was normal."
[2019-11-19] MEDS: meclizine 12.5mg tablet PO PRN (17:26)
--- NOTE | 2019-11-19 18:00 | NUR ---
Patient in room PCU 3011. I have received report from Elidia Mahajan and had the opportunity to ask questions and assume patient care.
--- NOTE | 2019-11-19 18:14 | NUR ---
Problems reprioritized. Patient report given, questions answered & plan of care reviewed with RU Bush. Pt sitting up in bed eating dinner. Guard at bedside, all needs met at this time.
[2019-11-19] MEDS: atorvastatin 10mg tablet PO SCH (20:42)
[2019-11-19] MEDS: prazosin 1mg capsule PO SCH (20:42)
[2019-11-19] MEDS: insulin glargine (Lantus) pen - multi-dose SQ SCH (21:00)
[2019-11-20 02:00] VITALS: BP_SYST 104; BP_SYST 106; BP_SYST 112; BP_DIAS 52; BP_DIAS 53; BP_DIAS 62
[2019-11-20 05:54] LABS: ALBUMIN 3.4 G/DL (3.4-5.0); ANION GAP 8 (8-16); BLOOD UREA NITROGEN 24 MG/DL (7-18); BUN/CREATININE RATIO 21.8 (5.4-32.0); CALCIUM 8.8 MG/DL (8.5-10.1); CHLORIDE 105 MMOL/L (99-107); GLUCOSE 107 MG/DL (70-104); SODIUM 140 MMOL/L (135-145); TOTAL CARBON DIOXIDE 27.4 MMOL/L (24-32); eGFR 70 ML/MIN
[2019-11-20 05:55] LABS: BASOPHILS # (AUTO) 0.1 X10'3 (0-0.2); EOSINOPHILS # (AUTO) 0.3 X10'3 (0-0.9); EOSINOPHILS % (AUTO) 5.4 % (0-6); HEMATOCRIT 34.6 % (42.0-52.0); HEMOGLOBIN 11.5 g/dl (14.0-17.9); LYMPHOCYTES # (AUTO) 2.1 X10'3 (1.1-4.8); LYMPHOCYTES % (AUTO) 41.1 % (21-51); MEAN CORPUSCULAR HEMOGLOBIN 28.7 PG (27.0-31.0); MEAN CORPUSCULAR HGB CONC 33.2 g/dL (33.0-36.5); MEAN CORPUSCULAR VOLUME 86.3 FL (78-98); MEAN PLATELET VOLUME 8.1 FL (7.4-10.4); MONOCYTES # (AUTO) 0.4 X10'3 (0-0.9); MONOCYTES % (AUTO) 8.3 % (2-12); NEUTROPHILS # (AUTO) 2.2 X10'3 (1.8-7.7); NEUTROPHILS % (AUTO) 44.2 % (42-75); PLATELET COUNT 165 X10'3 (140-440); RED BLOOD COUNT 4.01 X10'6 (4.70-6.10); RED CELL DISTRIBUTION WIDTH 15.8 % (11.5-14.5); WHITE BLOOD COUNT 5.1 X10'3 (4.5-11.0)
--- NOTE | 2019-11-20 06:24 | NUR ---
Problems reprioritized. Patient report given, questions answered & plan of care reviewed with Sonja VENCES.
[2019-11-20 06:30] VITALS: BP 93/50
[2019-11-20 08:00] VITALS: BP_SYST 111; BP_SYST 119; BP_SYST 121; BP_DIAS 64; BP_DIAS 66
[2019-11-20] MEDS: lisinopril 20mg tablet PO SCH (08:00)
[2019-11-20] MEDS: MELOXICAM 15 MG PO SCH (08:00)
[2019-11-20] MEDS: labetalol 100mg tablet PO SCH (08:00)
[2019-11-20] MEDS: amLODIPine 5mg tablet PO SCH (08:00)
[2019-11-20] MEDS: clopidogrel 75mg tablet PO SCH (08:01)
[2019-11-20] MEDS: aspirin 81mg tab.chew PO SCH (08:02)
[2019-11-20] MEDS: meclizine 12.5mg tablet PO PRN (08:02)
[2019-11-20] MEDS: busPIRone 5mg tablet PO SCH (08:02)
[2019-11-20] MEDS: pantoprazole 40mg Tablet.DR PO SCH (08:02)
[2019-11-20] MEDS: HYDROcodone/acetaminophen 5mg/325mg tablet PO PRN (08:05)
--- NOTE | 2019-11-20 10:30 | NUR ---
PATIENT STABLE AND APPROPRIATE FOR DISCHARGE BACK TO ASSISTED WITH ASSISTED STAFF. IV REMOVED. NO NEW PRESCRIPTIONS. ALL BELONGINGS TAKEN FROM ROOM. DISCHARGE INSTRUCTIONS GIVEN AND REVIEWED WITH PATIENT. ALL QUESTIONS ANSWERED. ORTHOSTATIC VITAL SIGNS STABLE PRIOR TO DC.
[2019-11-20] MEDS ORDERED: MECL-184 PO (15:30)
== END 2019-11-20 10:33 | DRG 101 ==
LOC: ER 16:41 → ED HOLD 20:11 → INTOOBSV 20:11 → EEVIPCON 20:11 → PCU 3S 21:40 → OBSVTOIN 11-19 14:00
PROVIDERS: ADMIT Internal Medicine; ATTEND Family Medicine
PROC: 4A00X4Z Measurement of Central Nervous Electrical Activity, External Approach (ICD-10-PCS; principal; 2019-11-19)
DX: G40.89 Other seizures (principal); E78.00 Pure hypercholesterolemia, unspecified; E11.9 Type 2 diabetes mellitus without complications; E66.9 Obesity, unspecified; F43.10 Post-traumatic stress disorder, unspecified; I10 Essential (primary) hypertension; W18.39XA Other fall on same level, initial encounter; I25.10 Atherosclerotic heart disease of native coronary artery without angina pectoris; I25.2 Old myocardial infarction; Z83.3 Family history of diabetes mellitus; Z86.73 Personal history of transient ischemic attack (TIA), and cerebral infarction without residual deficits; Y93.89 Activity, other specified; Y92.89 Other specified places as the place of occurrence of the external cause; Y99.8 Other external cause status; G43.909 Migraine, unspecified, not intractable, without status migrainosus
CPT/HCPCS: 36415; 70450; 70551; 71045; 80048; 80053; 80305; 80320; 81003; 82948; 83036; 83880; 84484; 85025; 87081; 93005; 95816; 96360; 97161; 97530; 97535; 99285; G0378; J1815; J7030; J8597

== ENCOUNTER 2019-12-30 14:20 | Emergency (ER) | payer OTHER ==
[~2019-12-30] VITALS: Ht 180.3 cm; Wt 113.6 kg
[~2019-12-30 14:20] MED LIST changes: +ALEN70TA60 PO; +AMLO2.5T2 PO; +BUSP10TA11 PO; -CELE-193 PO; -CLON0.2T2 PO; +CLOP75TA35 PO; -HYDR12.55 PO; -LEVO750T46 PO; +MECL-184 PO; +MELO-102 PO; -METO50TA7 PO; -NIFE90TA61 PO; +PRAZ2CAP2 PO; -RIFA300C4 PO; +SIMV-42 PO
[2019-12-30 15:29] LABS: BASOPHILS # (AUTO) 0.1 X10'3 (0-0.2); BASOPHILS % (AUTO) 0.9 % (0-1); EOSINOPHILS # (AUTO) 0.1 X10'3 (0-0.9); EOSINOPHILS % (AUTO) 2.4 % (0-6); HEMATOCRIT 37.2 % (42.0-52.0); HEMOGLOBIN 12.4 g/dl (14.0-17.9); LYMPHOCYTES # (AUTO) 1.9 X10'3 (1.1-4.8); LYMPHOCYTES % (AUTO) 32.8 % (21-51); MEAN CORPUSCULAR HEMOGLOBIN 28.3 PG (27.0-31.0); MEAN CORPUSCULAR HGB CONC 33.3 g/dL (33.0-36.5); MEAN CORPUSCULAR VOLUME 84.9 FL (78-98); MEAN PLATELET VOLUME 7.6 FL (7.4-10.4); MONOCYTES # (AUTO) 0.5 X10'3 (0-0.9); MONOCYTES % (AUTO) 8.8 % (2-12); NEUTROPHILS # (AUTO) 3.2 X10'3 (1.8-7.7); NEUTROPHILS % (AUTO) 55.1 % (42-75); PLATELET COUNT 204 X10'3 (140-440); RED BLOOD COUNT 4.38 X10'6 (4.70-6.10); RED CELL DISTRIBUTION WIDTH 15.3 % (11.5-14.5); WHITE BLOOD COUNT 5.8 X10'3 (4.5-11.0)
[2019-12-30 15:48] LABS: ALANINE AMINOTRANSFERASE 23 U/L (12-78); ALBUMIN 4.1 G/DL (3.4-5.0); ALBUMIN/GLOBULIN RATIO 1.1 (1.1-1.5); ALKALINE PHOSPHATASE 64 IU/L (46-116); ANION GAP 9 (8-16); ASPARTATE AMINO TRANSFERASE 18 U/L (10-37); BILIRUBIN,TOTAL 0.3 MG/DL (0.1-1.0); BLOOD UREA NITROGEN 18 MG/DL (7-18); BUN/CREATININE RATIO 12.5 (5.4-32.0); CALCIUM 9.7 MG/DL (8.5-10.1); CHLORIDE 102 MMOL/L (99-107); CREATININE 1.44 MG/DL (0.60-1.10); GLUCOSE 92 MG/DL (70-104); LIPASE 174 U/L (73-393); POTASSIUM 4.9 MMOL/L (3.5-5.1); SODIUM 138 MMOL/L (135-145); TOTAL CARBON DIOXIDE 27.5 MMOL/L (24-32); TOTAL PROTEIN 7.8 G/DL (6.4-8.2); eGFR 52 ML/MIN
[2019-12-30 16:27] VITALS: BP 119/78
== END 2019-12-30 16:28 | disposition home or self-care (01) ==
LOC: EEVIPCON 14:21 → ER 14:21
DX: R10.32 Left lower quadrant pain (principal); R19.7 Diarrhea, unspecified; R11.0 Nausea; I25.10 Atherosclerotic heart disease of native coronary artery without angina pectoris; E78.00 Pure hypercholesterolemia, unspecified; I10 Essential (primary) hypertension; I25.2 Old myocardial infarction; K21.9 Gastro-esophageal reflux disease without esophagitis; E11.9 Type 2 diabetes mellitus without complications; G89.29 Other chronic pain; F41.9 Anxiety disorder, unspecified; F32.9 Major depressive disorder, single episode, unspecified; Z86.73 Personal history of transient ischemic attack (TIA), and cerebral infarction without residual deficits; Z98.890 Other specified postprocedural states; Z79.82 Long term (current) use of aspirin; Z79.4 Long term (current) use of insulin; Z79.899 Other long term (current) drug therapy
CPT/HCPCS: 36415; 80053; 82948; 83690; 85025; 99283

== ENCOUNTER 2021-11-01 11:05 | Emergency (ER) | payer MEDICAID, MEDICARE, OTHER ==
[~2021-11-01] VITALS: Ht 182.9 cm; Wt 125.0 kg
[~2021-11-01 11:05] MED LIST changes: +CLOP75TA34 PO; -CLOP75TA35 PO; -LABE200T5 PO; +LABE200T8 PO; -LISI-600 PO; +LISI20TA28 PO; -MECL-184 PO; +MECL-231 PO
[2021-11-01 11:22] VITALS: BP 196/92
[2021-11-01] MEDS ORDERED: ketorolac trometh. 30mg/ml inj. IM ONE (12:40)
== END 2021-11-01 13:57 | disposition home or self-care (01) ==
LOC: ER 11:05
DX: M77.8 Other enthesopathies, not elsewhere classified (principal); M79.672 Pain in left foot; I25.10 Atherosclerotic heart disease of native coronary artery without angina pectoris; E78.00 Pure hypercholesterolemia, unspecified; I10 Essential (primary) hypertension; I25.2 Old myocardial infarction; K21.9 Gastro-esophageal reflux disease without esophagitis; E11.9 Type 2 diabetes mellitus without complications; G89.29 Other chronic pain; F41.9 Anxiety disorder, unspecified; F32.A Depression, unspecified; Z86.73 Personal history of transient ischemic attack (TIA), and cerebral infarction without residual deficits; Z98.890 Other specified postprocedural states; Z79.82 Long term (current) use of aspirin; Z79.4 Long term (current) use of insulin; Z79.899 Other long term (current) drug therapy
CPT/HCPCS: 29515; 73650; 96372; 99283; J1885; L1930; A6449

== ENCOUNTER 2022-03-28 23:06 | Emergency (ER) | payer MEDICARE, MEDICAID ==
[~2022-03-28] VITALS: Ht 182.9 cm; Wt 118.2 kg
[2022-03-28 23:21] VITALS: BP 141/87
== END 2022-03-29 03:36 | disposition left against medical advice (07) ==
LOC: ER 23:07
DX: H57.89 Other specified disorders of eye and adnexa (principal); Z53.21 Procedure and treatment not carried out due to patient leaving prior to being seen by health care provider

== ENCOUNTER 2022-11-15 16:12 | Emergency (ER) | payer MEDICAID, MEDICARE ==
[~2022-11-15] VITALS: Ht 182.9 cm; Wt 121.8 kg
[2022-11-15 16:37] LABS: BASOPHILS # (AUTO) 0.1 X10'3 (0-0.2); BASOPHILS % (AUTO) 0.8 % (0-1); EOSINOPHILS # (AUTO) 0.3 X10'3 (0-0.9); EOSINOPHILS % (AUTO) 3.7 % (0-6); HEMATOCRIT 37.8 % (42.0-52.0); HEMOGLOBIN 12.5 g/dl (14.0-17.9); LYMPHOCYTES % (AUTO) 28.3 % (21-51); MEAN CORPUSCULAR HEMOGLOBIN 29.3 PG (27.0-31.0); MEAN CORPUSCULAR VOLUME 88.6 FL (78-98); MEAN PLATELET VOLUME 7.1 FL (7.4-10.4); MONOCYTES # (AUTO) 0.5 X10'3 (0-0.9); MONOCYTES % (AUTO) 7.4 % (2-12); NEUTROPHILS # (AUTO) 4.2 X10'3 (1.8-7.7); NEUTROPHILS % (AUTO) 59.8 % (42-75); PLATELET COUNT 250 X10'3 (140-440); RED BLOOD COUNT 4.27 X10'6 (4.70-6.10); RED CELL DISTRIBUTION WIDTH 15.7 % (11.5-14.5)
[2022-11-15 16:47] LABS: ALANINE AMINOTRANSFERASE 64 U/L (12-78); ALBUMIN 3.6 G/DL (3.4-5.0); ANION GAP 7 (8-16); ASPARTATE AMINO TRANSFERASE 52 U/L (10-37); BILIRUBIN,TOTAL 0.3 MG/DL (0.1-1.0); BLOOD UREA NITROGEN 14 MG/DL (7-18); BUN/CREATININE RATIO 12.3 (10.0-20.0); CALCIUM 8.9 MG/DL (8.5-10.1); CHLORIDE 104 MMOL/L (99-107); CREATININE 1.14 MG/DL (0.60-1.10); GLUCOSE 144 MG/DL (70-104); POTASSIUM 3.7 MMOL/L (3.5-5.1); SODIUM 139 MMOL/L (135-145); TOTAL CARBON DIOXIDE 28.1 MMOL/L (24-32); TOTAL PROTEIN 7.3 G/DL (6.4-8.2); eGFR 67 ML/MIN
[2022-11-15 16:55] LABS: PRO BRAIN NATRIURETIC PEPTIDE 68 PG/ML (0-125)
[2022-11-15 17:25] LABS: ALKALINE PHOSPHATASE 76 IU/L (46-116)
[2022-11-15 19:13] VITALS: TEMP 98.8
[2022-11-15 19:25] LABS: BILIRUBIN,URINE NEGATIVE (Neg); CLARITY,URINE CLEAR (Clear); COLOR,URINE YELLOW (Yellow); GLUCOSE, URINE NEGATIVE (Neg); KETONES,URINE TRACE mg/dl (Neg); LEUKOCYTE ESTERASE ,URINE NEGATIVE (Neg); NITRITES, URINE NEGATIVE (Neg); OCCULT BLOOD,URINE NEGATIVE (Neg); PH,URINE 5.5 (4.8-8.0); PROTEIN,URINE NEGATIVE (Neg); UROBILINOGEN,URINE 0.2 E.U/dL (0.2-1.0)
[2022-11-15 19:29] LABS: UA COLLECTION TYPE CLN CATCH MIDSTREAM
[2022-11-15] MEDS ORDERED: iohexol 350MG/ML 100ml bottle IV ONE (21:30)
[2022-11-15] MEDS ORDERED: HYDROmorphone 1 mg/ml syringe IV ONE (21:55)
[2022-11-15 21:56] LABS: D-DIMER 1.25 MG/L FEU (0-0.50)
[2022-11-16] MEDS ORDERED: AMOX-117 PO (01:20)
[2022-11-16] MEDS ORDERED: HYDROcodone/acetaminophen 10/325mg tab PO ONE (01:25)
[2022-11-16] MEDS ORDERED: HYDR-3965 PO (01:29)
[2022-11-16 01:50] VITALS: BP 176/82; PULSE 94; RESP 16; O2SAT 97
== END 2022-11-16 01:55 | disposition home or self-care (01) ==
LOC: ER 16:13
DX: R07.9 Chest pain, unspecified (principal); Z20.822 Contact with and (suspected) exposure to COVID-19; R10.9 Unspecified abdominal pain; R50.9 Fever, unspecified; I11.0 Hypertensive heart disease with heart failure; E11.9 Type 2 diabetes mellitus without complications; F31.9 Bipolar disorder, unspecified; Z79.899 Other long term (current) drug therapy
CPT/HCPCS: 36415; 71045; 71275; 80053; 81003; 82948; 83880; 84484; 85025; 85379; 87811; 93005; 96374; 99285; J1170; J3490; Q9967